=== PATIENT | male | born 1980 | race Caucasian/White ===

== ENCOUNTER 2016-11-14 08:32 | Emergency (ER) | payer MEDICAID ==
[~2016-11-14] VITALS: Ht 160 cm; Wt 80.0 kg
[~2016-11-14 08:32] MED LIST: FOLI-49 PO; PANT40TA3 PO
[2016-11-14 08:35] VITALS: Ht 160 cm; Wt 80.0 kg
[2016-11-14] MEDS ORDERED: morphine 2 MG INJ IV STA (09:32)
[2016-11-14] MEDS ORDERED: ONDANSETRON 4 MG INJ IV STA (09:32)
[2016-11-14] MEDS ORDERED: FAMOTIDINE 20 MG INJ IV STA (09:32)
[2016-11-14] MEDS ORDERED: SOD CHLORIDE 0.9% 1,000 ML IV STA (09:32)
[2016-11-14] MEDS ORDERED: ASPIRIN 81 MG TAB PO ONE (10:00)
[2016-11-14 10:19] LABS: ADD SCAN DIFF NO
[2016-11-14 10:26] LABS: BASOPHIL # 0.1 10^3/ul (0.0-0.1); BASOPHILS % 1.2 % (0.0-2.0); EOSINOPHILS % 0.2 % (0.0-7.0); HEMATOCRIT 29.5 % (42.0-52.0); HEMOGLOBIN 8.9 g/dl (14.0-18.0); LYMPHOCYTES # 1.6 10^3/ul (0.8-2.9); LYMPHOCYTES % 32.4 % (15.0-51.0); MEAN CORPUSCULAR HEMOGLOBIN 22.5 pg (29.0-33.0); MEAN CORPUSCULAR HGB CONC 30.2 g/dl (32.0-37.0); MEAN CORPUSCULAR VOLUME 74.7 fl (82.0-101.0); MEAN PLATELET VOLUME 10.5 fl (7.4-10.4); MONOCYTE # 0.5 10^3/ul (0.3-0.9); MONOCYTES % 10.2 % (0.0-11.0); NEUTROPHIL # 2.7 10^3/ul (1.6-7.5); NEUTROPHILS % 55.6 % (39.0-77.0); PLATELET COUNT 247 10^3/UL (140-415); RED BLOOD COUNT 3.95 10^6/ul (4.70-6.10); RED CELL DISTRIBUTION WIDTH 19.9 % (11.5-14.5); WHITE BLOOD COUNT 4.9 10^3/ul (4.8-10.8)
[2016-11-14 10:54] LABS: ALBUMIN 4.4 g/dl (3.3-4.9)
[2016-11-14 10:55] LABS: CHLORIDE 94 mmol/L (97-110); POTASSIUM 3.4 mmol/L (3.5-5.1); SODIUM 135 mmol/L (135-144)
[2016-11-14 10:57] LABS: ANION GAP 22 (8-16); ASPARTATE AMINO TRANSFERASE 104 IU/L (15-46); BILIRUBIN,INDIRECT 0.5 mg/dl (0-1.1); BILIRUBIN,TOTAL 0.5 mg/dl (0.2-1.3); CARBON DIOXIDE 22 mmol/L (21-31); CREATININE 0.54 mg/dl (0.61-1.24); TOTAL PROTEIN 8.8 g/dl (6.1-8.1)
[2016-11-14 10:58] LABS: ALANINE AMINOTRANSFERASE 58 IU/L (13-69); ALKALINE PHOSPHATASE 90 IU/L (42-121); BLOOD UREA NITROGEN 9 mg/dl (7-20); CALCIUM 8.5 mg/dl (8.4-10.2); GLUCOSE 100 mg/dl (70-220)
[2016-11-14 11:14] LABS: TROPONIN-I < 0.012 ng/ml (0.00-0.12)
--- NOTE | 2016-11-14 11:15 | RADRPT ---
PROCEDURE: XR Chest. CLINICAL INDICATION: Chest pain TECHNIQUE: Chest AP portable. COMPARISON: 09/22/2014 FINDINGS: The mediastinal structures are unremarkable. The heart is normal in size and configuration. The pu lmonary vascularity is normal. The lung cox are unremarkable. No consolidation is identified. The pleural spaces are unremarkable. The axial skeleton is unremarkable. IMPRESSION: No active intrathoracic disease. RPTAT: HGDB .John Zapata MD, MD Date Time Electronically viewed and signed by .John Zapata MD, MD on 11/14/2016 11:15 .B/
[2016-11-14] MEDS ORDERED: morphine 4 MG/ML VIAL IV STA (11:24)
--- NOTE | 2016-11-14 11:30 | RADRPT ---
PROCEDURE: XR abdomen supine and upright. CLINICAL INDICATION: Abdominal pain TECHNIQUE: AP supine and upright views of the abdomen performed COMPARISON: None. FINDINGS: No organomegaly is identified. There is a nonspecific bowel gas pattern. There is no evidence of b owel obstruction. No free air is identified. No calculi are identified. The axial skeleton is unre markable. IMPRESSION: Unremarkable examination. RPTAT: HGDB .John Zapata MD, MD Date Time Electronically viewed and signed by .John Zapata MD, on 11/14/2016 11:30 .B/
[2016-11-14 11:47] LABS: ADD UMIC YES; URINE BILIRUBIN (Dip) NEGATIVE (NEGATIVE); URINE BLOOD (Dip) TRACE (NEGATIVE); URINE COLOR LT. YELLOW (YELLOW); URINE GLUCOSE (Dip) NEGATIVE (NEGATIVE); URINE KETONES (Dip) NEGATIVE (NEGATIVE); URINE LEUKOCYTE ESTERASE (Dip) 1+ (NEGATIVE); URINE NITRITE (Dip) NEGATIVE (NEGATIVE); URINE TOTAL PROTEIN (Dip) NEGATIVE (NEGATIVE); URINE UROBILINOGEN (Dip) 0.2 E.U./dL (0.1-1.0)
[2016-11-14 12:04] LABS: BACTERIA,URINE FEW; URINE RBCS 0-2 /HPF (0)
[2016-11-14] MEDS ORDERED: UDLOM GTB (12:34)
[2016-11-14] MEDS ORDERED: ONDA4TAB11 PO (12:34)
[2016-11-14] MEDS ORDERED: RANI150T9 PO (12:42)
[2016-11-14] MEDS ORDERED: FER325 PO (12:43)
[2016-11-14] MEDS ORDERED: CEPH-443 PO (12:44)
[2016-11-14 13:10] VITALS: BP 130/78; PULSE 84; RESP 18; TEMP 97.6
[2016-11-15] MEDS ORDERED: FAMO-18 PO (07:56)
[2016-11-15] MEDS ORDERED: LOPE2CAP PO (07:56)
[2016-11-15] MEDS ORDERED: DICY10CA60 PO (07:56)
--- NOTE | 2016-11-27 14:56 | ERD ---
DATE OF SERVICE: 11/14/2016 HISTORY OF PRESENT ILLNESS: This 28-year-old male presented to the emergency room for 3 days of juventino sea, vomiting, diarrhea. He also stated that he has intermittent, crampy abdominal pain that does n ot radiate. He also states that since last night he has had intermittent burning chest pain that do es not radiate, is substernal. He denies fevers. Denies shortness of breath. States that he is ab le to hold some liquids as well as solids and believes that today he is feeling a little bit better. REVIEW OF SYSTEMS: A 10-point review of systems negative except as in the HPI. PAST MEDICAL HISTORY: Denies. PAST SURGICAL HISTORY: Denies. FAMILY HISTORY: Noncontributory. SOCIAL HISTORY: Does not smoke or use other drugs but admits to drinking almost every day, at least 3 beers. He states that he did not drink today or yesterday because he was feeling sick. PHYSICAL EXAMINATION VITAL SIGNS: Temperature 98.1, pulse 94, blood pressure 145/89, respirations 18, oxygen saturation 98% on room air. GENERAL: No acute distress. HEENT: Normocephalic, atraumatic. Mucous membranes slightly dry. NECK: Supple, no JVD or meningismus. CARDIAC: Regular rhythm. No murmurs. LUNGS: Clear to auscultation bilaterally. ABDOMEN: Soft, no specific tenderness, nondistended, bowel sounds present in all 4 quadrants. EXTREMITIES: No cyanosis, clubbing or edema. VASCULAR: Distal pulses intact all 4 extremities. NEUROLOGIC: Alert and oriented x3 with no focal deficits. SKIN: No rashes or other lesions. Dry, warm. PSYCHIATRIC: Normal mood and affect. EMERGENCY DEPARTMENT COURSE AND MEDICAL DECISION MAKING: Patient showing dehydration secondary to v omiting and diarrhea, likely secondary to viral gastroenteritis versus food poisoning versus alcohol -related irritation of intestines. For the chest pain, cardiac workup was performed which shows no ischemic changes on EKG and a negative troponin. His chest pain was a burning pain, is likely assoc iated with reflux of acid secondary to his vomiting. He was given IV Pepcid, Zofran, morphine and a liter of normal saline, after which he was feeling much better. Because of the chest pain, he was also given aspirin. He did have mild lactic acidosis likely secondary to his dehydration. No signs of renal dysfunction or other electrolyte abnormalities. Urinalysis was positive for 10 to 25 whit e cells as well as leukocyte esterase. We did treat him with 3 days of Keflex for possible UTI. Bryson kuhn also shows that he has chronic anemia. I am going to prescribe him iron tablets as well. To prevent further dehydration, I am also discharging him with Lomotil and Zofran to help with his symp toms. I am also giving him Zantac. ____with primary care followup and instructed to follow up in t he next 2 to 3 days, but return to the emergency room if he has having any acute symptoms and cannot hold down any food, or if he continues to have significant diarrhea. ABDOMINAL X-RAY INTERPRETATION, 2-VIEW: I see no acute process, I see no obstruction, no free air, no bony abnormalities. Normal abdominal x-ray. CHEST X-RAY INTERPRETATION: I see no acute process. I see no consolidation, no pulmonary edema, no pneumothorax, no bony abnormalities. EKG INTERPRETATION: Normal sinus rhythm, rate 69, normal axis, normal intervals, no ST or T-wave ch anges concerning for acute ischemia. Normal EKG. AUTOMATIC BUFFER INTERPRETATION: Normal sinus rhythm without arrhythmia. DISCHARGE DIAGNOSES: 1. Dehydration. 2. Nausea, vomiting, and diarrhea. 3. Microcytic anemia. 4. Chest pain. 5. Urinary tract infection. DISPOSITION: Home in stable condition. Dictated By: BECCA HUANG/PARAS Conf#: [id number] DID#: [id number]
== END 2016-11-14 13:14 | disposition home or self-care (01) ==
LOC: E/R 08:32
DX: E86.0 Dehydration (principal); D50.9 Iron deficiency anemia, unspecified; R07.9 Chest pain, unspecified; N39.0 Urinary tract infection, site not specified; R40.2252 Coma scale, best verbal response, oriented, at arrival to emergency department; R40.2142 Coma scale, eyes open, spontaneous, at arrival to emergency department; R40.2362 Coma scale, best motor response, obeys commands, at arrival to emergency department
CPT/HCPCS: 71010; 74010; 80053; 81001; 83605; 83690; 84484; 85025; 93005; J2270; J2405; J7030; Z7610; 36415; 81003; 96374; 96375

== ENCOUNTER 2016-11-15 05:45 | Emergency (ER) | payer MEDICAID ==
[~2016-11-15] VITALS: Ht 175.3 cm; Wt 106.8 kg
[~2016-11-15 05:45] MED LIST changes: +CEPH-443 PO; +FER325 PO; -FOLI-49 PO; +ONDA4TAB11 PO; +RANI150T9 PO; +UDLOM GTB
[2016-11-15 05:46] VITALS: Ht 175.3 cm; Wt 106.8 kg
[2016-11-15] MEDS ORDERED: BELLADONNA/PHENOBARBITAL TAB PO STA (06:12)
[2016-11-15] MEDS ORDERED: FAMOTIDINE 20 MG TAB PO STA (06:12)
[2016-11-15] MEDS ORDERED: LIDOCAINE/MYLANTA 40 ML BTL PO STA (06:12)
[2016-11-15] MEDS ORDERED: ONDANSETRON (ODT) 4 MG TAB ODT STA (06:12)
[2016-11-15] MEDS ORDERED: DICYCLOMINE 10 MG CAP PO ONE (06:30)
--- NOTE | 2016-11-15 06:34 | ERD ---
ER Documentation Chief Complaint Date/Time DATE: 11/15/16 TIME: 06:31 Chief Complaint PERSISTENT ABD PAIN, N/V/D X 2 DAYS, RECENTLY D/C'D HERE FOR SAME HPI This is a 36-year-old male to the ER with persistent epigastric pain that started yesterday. Patient states that epigastric pain radiates up into his right upper quadrant, it is intermittent and burning in quality. Patient states he has had nausea vomiting and diarrhea. Vomiting is not bilious nonbloody. Diarrhea is watery with no blood in it. Patient was seen here yesterday, however he did not fill his medication. patient has a past medical history of previous GI bleeds. Patient denies any fevers or chills. Patient has not traveled anywhere. Patient denies any chest pain or shortness of breath. ROS 12 point review of systems was done, all negative except per HPI. Medications Home Meds Active Scripts Loperamide Hcl* (Imodium*) 2 Mg Capsule, 2 MG PO .WITH EACH DIARRHEA Y for DIARRHEA for 3 Days, CAP MAX 16 mg/day Prov:STEVE MONSALVE 11/15/16 Dicyclomine Hcl* (Bentyl*) 10 Mg Capsule, 10 MG PO QID for 3 Days, CAP Prov:STEVE MONSALVE C 11/15/16 Famotidine* (Pepcid*) 20 Mg Tablet, 20 MG PO BID for 7 Days, TAB Prov:BELLO,STEVE C 11/15/16 Cephalexin* (Keflex*) 500 Mg Capsule, 500 MG PO TID for 5 Days, CAP Prov:BECCA MUELLER DO 11/14/16 Ferrous Sulfate* (Ferrous Sulfate*) 325 Mg Tabec, 325 MG PO BID, #30 TAB Prov:BECCA MUELLER DO 11/14/16 Ranitidine Hcl* (Zantac*) 150 Mg Tablet, 150 MG PO BID Y for EPIGASTRIC PAIN, # 30 TAB Prov:BECCA MUELLER DO 11/14/16 Diphenoxylate Hcl-Atropine* (Lomotil*) 5 Ml Soln, 5 ML GTB Q6H Y for DIARRHEA, # 14 ML Prov:BECCA MUELLER DO 11/14/16 Ondansetron (Zofran Odt) 4 Mg Tab.rapdis, 4 MG PO Q6, #10 Prov:BECCA MUELLER DO 11/14/16 Pantoprazole* (Protonix*) 40 Mg Tablet.dr, 40 MG PO DAILY for 30 Days, TAB Prov:JOHNATHAN EDGAR 06/13/16 Discontinued Scripts Folic Acid* (Folic Acid*) 1 Mg Tablet, 1 MG PO DAILY for 30 Days, TAB Prov:JOHNATHAN EDGAR 06/13/16 Allergies Allergies: Coded Allergies: No Known Allergy (Unverified , 11/14/16) PMhx/Soc History of Surgery: No (DENIES SURGICAL HX.) Anesthesia Reaction: No Hx Neurological Disorder: No Hx Respiratory Disorders: No Hx Cardiac Disorders: No Hx Psychiatric Problems: No Hx Miscellaneous Medical Probl: Yes (ALCOHOL ABUSE.) Hx Alcohol Use: Yes (8 cans of beers/day for last 3 months) Hx Substance Use: No Hx Tobacco Use: No Smoking Status: Never smoker Physical Exam Vitals Vital Signs Date Time Temp Pulse Resp B/P Pulse Ox O2 Delivery O2 Flow Rate FiO2 11/15/16 05:46 96.5 110 18 132/84 97 Physical Exam GENERAL: The patient is well developed and appropriate for usual state of health , in no apparent distress. HEENT: Atraumatic. CHEST: Clear to auscultation bilaterally. There are no rales, wheezes or rhonchi. HEART: Regular rate and rhythm. No murmurs, clicks, rubs or gallops. ABDOMEN: Soft and nondistended. Patient is tender to palpation over the epigastric area and in the right upper quadrant. Good bowel sounds. No rebound or guarding. No gross peritonitis. No gross organomegaly or masses. No Tuttle sign or McBurney point tenderness. No pulsatile masses BACK: No midline or flank tenderness. NEURO: Alert and oriented. SKIN: There is no apparent rash or petechia. The skin is warm and dry. Result Diagram: 11/15/16 0650 11/15/16 0658 Results 24 hrs Laboratory Tests Test 11/15/16 06:50 11/15/16 06:58 White Blood Count 7.010^3/ul Red Blood Count 4.1610^6/ul Hemoglobin 9.2g/dl Hematocrit 31.4% Mean Corpuscular Volume 75.5fl Mean Corpuscular Hemoglobin 22.1pg Mean Corpuscular Hemoglobin Concent 29.3g/dl Red Cell Distribution Width 20.3% Platelet Count 37490^3/UL Mean Platelet Volume 10.6fl Neutrophils % 74.5% Lymphocytes % 15.0% Monocytes % 9.4% Eosinophils % 0.3% Basophils % 0.7% Nucleated Red Blood Cells % 0.0/100WBC Neutrophils # 5.210^3/ul Lymphocytes # 1.110^3/ul Monocytes # 0.710^3/ul Eosinophils # 0.010^3/ul Basophils # 0.110^3/ul Nucleated Red Blood Cells # 0.010^3/ul Sodium Level 136mmol/L Potassium Level 4.0mmol/L Chloride Level 99mmol/L Carbon Dioxide Level 25mmol/L Anion Gap 16 Blood Urea Nitrogen 7mg/dl Creatinine 0.68mg/dl Glucose Level 114mg/dl Calcium Level 9.1mg/dl Total Bilirubin 0.7mg/dl Direct Bilirubin 0.00mg/dl Indirect Bilirubin 0.7mg/dl Aspartate Amino Transf (AST/SGOT) 144IU/L Alanine Aminotransferase (ALT/SGPT) 68IU/L Alkaline Phosphatase 108IU/L Total Protein 9.1g/dl Albumin 4.6g/dl Globulin 4.50g/dl Albumin/Globulin Ratio 1.02 Lipase 192U/L Current Medications Medications (Trade) Dose Ordered Sig/Mirlande Route PRN Reason Start Time Stop Time Status Last Admin Dose Admin Famotidine (Pepcid) 20 mg ONCE STAT PO 11/15/16 06:12 11/15/16 06:14 DC 11/15/16 06:41 Miscellaneous Medication (Gi Cocktail (2)) 40 ml ONCE STAT PO 11/15/16 06:12 11/15/16 06:14 DC 11/15/16 06:42 Belladonna/ Phenobarbital () 2 tab ONCE STAT PO 11/15/16 06:12 11/15/16 06:14 DC 11/15/16 06:42 Ondansetron HCl (Zofran Odt) 4 mg ONCE STAT ODT 11/15/16 06:12 11/15/16 06:14 DC 11/15/16 06:41 Dicyclomine HCl (Bentyl) 10 mg ONCE ONCE PO 11/15/16 06:30 11/15/16 06:31 DC 11/15/16 06:41 Procedures/MDM Differential Diagnosis: GERD, gastritis, peptic ulcer disease, pancreatitis, cholecystitis, choledocholithiasis, biliary colic, cholangitis, Djsj-Yret-Woigel , ACS/DC, Pnuemonia. This is a 36 y.o male that presents with n/v/d since yesterday. Patient was here yesterday and extensively worked up. Patient did have a little bit of RUQ pain, therefore ultz was done. There is no evidence of gallbladder disease. Patient's bloodwork is normal, with no evidence of increased liver enzymes or pancreatitis. Patient's hemoglobin is increasing, suspicion for GI bleed is low. Patient does not have any hx of melana or cofffe ground vomiting. Patient was told to fill his medications from yesterday and from today. He needs to f/u with PCP within 1-2 days or return to ER sooner if symptoms worsen. Plan was discussed with the patient, he understands and agrees with plan. Departure Diagnosis: Primary Impression: Nausea vomiting and diarrhea Condition: Stable STEVE MONSALVE November 15, 2016 06:34
--- NOTE | 2016-11-15 06:54 | RADRPT ---
PROCEDURE: US Abdomen. CLINICAL INDICATION: abdominal pain TECHNIQUE: Multiple real-time images were acquired of the patient's right upper quadrant abdomen a nd retroperitoneum utilizing a high resolution transducer. COMPARISON: 05/13/2012 FINDINGS: The liver demonstrates increased echogenicity. The liver is slightly enlarged in size and no focal solid lesions are seen. The liver measures 19.5 cm in length. The portal vein is patent with normal direction of flow. No intrahepatic biliary dilatation is seen. No gallstones are identified within the gallbladder. There is no pericholecystic fluid or gallbladd er wall thickening. The common bile duct measures 5 mm in maximal dimension. The visualized portions of the pancreas are unremarkable. The tail of the pancreas is not seen. No free fluid is identified. The right kidney is normal in size, and demonstrate normal echogenicity and cortical thickness. The right kidney measures 12.4 cm in long dimension. There is no evidence of hydronephrosis. There are no kidney stones. RPTAT: AA IMPRESSION: Mild hepatomegaly with diffuse fatty infiltration of the liver. No evidence of gallstones. .Marek Sommers MD MD Date Time Electronically viewed and signed by .Marek Sommers MD, MD on 11/15/2016 06:54 .S/
[2016-11-15 07:18] LABS: ADD SCAN DIFF NO
[2016-11-15 07:30] LABS: BASOPHIL # 0.1 10^3/ul (0.0-0.1); BASOPHILS % 0.7 % (0.0-2.0); EOSINOPHILS % 0.3 % (0.0-7.0); HEMATOCRIT 31.4 % (42.0-52.0); HEMOGLOBIN 9.2 g/dl (14.0-18.0); LYMPHOCYTES # 1.1 10^3/ul (0.8-2.9); MEAN CORPUSCULAR HEMOGLOBIN 22.1 pg (29.0-33.0); MEAN CORPUSCULAR HGB CONC 29.3 g/dl (32.0-37.0); MEAN CORPUSCULAR VOLUME 75.5 fl (82.0-101.0); MEAN PLATELET VOLUME 10.6 fl (7.4-10.4); MONOCYTE # 0.7 10^3/ul (0.3-0.9); MONOCYTES % 9.4 % (0.0-11.0); NEUTROPHIL # 5.2 10^3/ul (1.6-7.5); NEUTROPHILS % 74.5 % (39.0-77.0); PLATELET COUNT 226 10^3/UL (140-415); RED BLOOD COUNT 4.16 10^6/ul (4.70-6.10); RED CELL DISTRIBUTION WIDTH 20.3 % (11.5-14.5)
[2016-11-15 07:49] LABS: ALBUMIN 4.6 g/dl (3.3-4.9); ALBUMIN/GLOBULIN RATIO 1.02; BILIRUBIN,INDIRECT 0.7 mg/dl (0-1.1); BILIRUBIN,TOTAL 0.7 mg/dl (0.2-1.3); CALCIUM 9.1 mg/dl (8.4-10.2); CREATININE 0.68 mg/dl (0.61-1.24); TOTAL PROTEIN 9.1 g/dl (6.1-8.1)
[2016-11-15] MEDS ORDERED: DICY10CA60 PO (07:56)
[2016-11-15] MEDS ORDERED: LOPE2CAP PO (07:56)
[2016-11-15] MEDS ORDERED: FAMO-18 PO (07:56)
== END 2016-11-15 08:05 | disposition home or self-care (01) ==
LOC: FTE 05:45
DX: R11.2 Nausea with vomiting, unspecified (principal); R19.7 Diarrhea, unspecified
CPT/HCPCS: 76705; 80053; 83690; 85025; Z7502; Z7610

== ENCOUNTER 2016-11-20 05:17 | Emergency (ER) | payer MEDICAID ==
[~2016-11-20] VITALS: Ht 177.8 cm; Wt 102.0 kg
[~2016-11-20 05:17] MED LIST changes: +DICY10CA60 PO; +FAMO-18 PO; +LOPE2CAP PO
[2016-11-20 05:19] VITALS: Ht 177.8 cm; Wt 102.0 kg
[2016-11-20] MEDS ORDERED: SOD CHLORIDE 0.9% 1,000 ML IV STA (05:28)
[2016-11-20] MEDS ORDERED: LORAZEPAM 2 MG INJ IV ONE (05:30)
--- NOTE | 2016-11-20 05:31 | ERD ---
ER Documentation Chief Complaint Date/Time DATE: 11/20/16 TIME: 05:29 Chief Complaint etoh wldrawal- shaking, drinking tequila staight 15 days HPI This is a 36-year-old male with complaint of EtOH withdrawal. Says he drinks 15 days in a row and starting today. She feels shaky. Denies any hallucinations. Denies any other current complaints. ROS All systems reviewed and are negative except as per history of present illness. Medications Home Meds Active Scripts Loperamide Hcl* (Imodium*) 2 Mg Capsule, 2 MG PO .WITH EACH DIARRHEA Y for DIARRHEA for 3 Days, CAP MAX 16 mg/day Prov:STEVE MONSALVE C 11/15/16 Dicyclomine Hcl* (Bentyl*) 10 Mg Capsule, 10 MG PO QID for 3 Days, CAP Prov:STEVE MONSALVE 11/15/16 Famotidine* (Pepcid*) 20 Mg Tablet, 20 MG PO BID for 7 Days, TAB Prov:STEVE MONSALVE 11/15/16 Cephalexin* (Keflex*) 500 Mg Capsule, 500 MG PO TID for 5 Days, CAP Prov:BECCA MUELLER DO 11/14/16 Ferrous Sulfate* (Ferrous Sulfate*) 325 Mg Tabec, 325 MG PO BID, #30 TAB Prov:BECCA MUELLER DO 11/14/16 Ranitidine Hcl* (Zantac*) 150 Mg Tablet, 150 MG PO BID Y for EPIGASTRIC PAIN, # 30 TAB Prov:BECCA MUELLER DO 11/14/16 Diphenoxylate Hcl-Atropine* (Lomotil*) 5 Ml Soln, 5 ML GTB Q6H Y for DIARRHEA, # 14 ML Prov:BECCA MUELLER DO 11/14/16 Ondansetron (Zofran Odt) 4 Mg Tab.rapdis, 4 MG PO Q6, #10 Prov:BECCA MUELLER DO 11/14/16 Pantoprazole* (Protonix*) 40 Mg Tablet.dr, 40 MG PO DAILY for 30 Days, TAB Prov:JOHNATHAN EDGAR 06/13/16 Discontinued Scripts Folic Acid* (Folic Acid*) 1 Mg Tablet, 1 MG PO DAILY for 30 Days, TAB Prov:JOHNATHAN EDGAR 06/13/16 Allergies Allergies: Coded Allergies: No Known Allergy (Unverified , 11/14/16) PMhx/Soc History of Surgery: No (DENIES SURGICAL HX.) Anesthesia Reaction: No Hx Neurological Disorder: No Hx Respiratory Disorders: No Hx Cardiac Disorders: No Hx Psychiatric Problems: No Hx Miscellaneous Medical Probl: Yes (ALCOHOL ABUSE.) Hx Alcohol Use: Yes (8 cans of beers/day for last 3 months) Hx Substance Use: No Hx Tobacco Use: No Physical Exam Vitals Vital Signs Date Time Temp Pulse Resp B/P Pulse Ox O2 Delivery O2 Flow Rate FiO2 11/20/16 05:19 97.8 114 20 158/85 98 Physical Exam Const: [] Head: Atraumatic Eyes: Normal Conjunctiva ENT: Normal External Ears, Nose and Mouth. Neck: Full range of motion..~ No meningismus. Resp: Clear to auscultation bilaterally Cardio: Regular rate and rhythm, no murmurs Abd: Soft, non tender, non distended. Normal bowel sounds Skin: No petechiae or rashes Back: No midline or flank tenderness Ext: No cyanosis, or edema Neur: Awake and alert Psych: Normal Mood and Affect Procedures/MDM This is a 36-year-old alcoholic who decided to stop drinking today. He has been treated for his withdrawal symptoms with fluid hydration and Ativan administration intravenously. He will be discharged home with [facility] [place]. Patient has been advised to stop drinking. He has also been advised to seek outpatient treatment. Resources were offered, however the patient declined Departure Diagnosis: Primary Impression: Alcohol withdrawal syndrome Complication of substance-induced condition: uncomplicated Qualified Code: F10.230 - Alcohol withdrawal syndrome, uncomplicated Condition: Stable PAUL COLLINS November 20, 2016 05:31
[2016-11-20] MEDS ORDERED: CHLO25CA9 PO (05:34)
[2016-11-20 08:20] VITALS: BP 125/69; PULSE 79; RESP 19; TEMP 98
== END 2016-11-20 08:20 | disposition home or self-care (01) ==
LOC: E/R 05:17
DX: F10.230 Alcohol dependence with withdrawal, uncomplicated (principal)
CPT/HCPCS: 96361; 96374; J2060; J7030; Z7502

== ENCOUNTER 2016-12-14 07:19 | Emergency (ER) | payer MEDICAID ==
[~2016-12-14] VITALS: Ht 177.8 cm; Wt 98.0 kg
[~2016-12-14 07:19] MED LIST changes: +CHLO25CA9 PO
[2016-12-14 07:21] VITALS: Ht 177.8 cm; Wt 98.0 kg
[2016-12-14] MEDS ORDERED: SOD CHLORIDE 0.9% 1,000 ML IV STA (07:29)
[2016-12-14] MEDS ORDERED: LORAZEPAM 2 MG INJ IV ONE (07:30)
[2016-12-14 08:04] LABS: ADD SCAN DIFF NO
[2016-12-14 08:09] LABS: BASOPHIL # 0.1 10^3/ul (0.0-0.1); EOSINOPHILS % 0.2 % (0.0-7.0); HEMATOCRIT 30.9 % (42.0-52.0); HEMOGLOBIN 9.8 g/dl (14.0-18.0); LYMPHOCYTES # 2.4 10^3/ul (0.8-2.9); LYMPHOCYTES % 46.3 % (15.0-51.0); MEAN CORPUSCULAR HEMOGLOBIN 22.3 pg (29.0-33.0); MEAN CORPUSCULAR HGB CONC 31.7 g/dl (32.0-37.0); MEAN CORPUSCULAR VOLUME 70.4 fl (82.0-101.0); MONOCYTE # 0.4 10^3/ul (0.3-0.9); NEUTROPHIL # 2.3 10^3/ul (1.6-7.5); NEUTROPHILS % 44.1 % (39.0-77.0); RED BLOOD COUNT 4.39 10^6/ul (4.70-6.10); RED CELL DISTRIBUTION WIDTH 20.5 % (11.5-14.5); WHITE BLOOD COUNT 5.1 10^3/ul (4.8-10.8)
[2016-12-14 08:25] LABS: ALANINE AMINOTRANSFERASE 89 IU/L (13-69); ALBUMIN 4.6 g/dl (3.3-4.9); ALKALINE PHOSPHATASE 134 IU/L (42-121); ANION GAP 18 (8-16); ASPARTATE AMINO TRANSFERASE 223 IU/L (15-46); BILIRUBIN,INDIRECT 0.2 mg/dl (0-1.1); BILIRUBIN,TOTAL 0.2 mg/dl (0.2-1.3); BLOOD UREA NITROGEN 7 mg/dl (7-20); CALCIUM 8.5 mg/dl (8.4-10.2); CARBON DIOXIDE 22 mmol/L (21-31); CHLORIDE 99 mmol/L (97-110); CREATININE 0.52 mg/dl (0.61-1.24); GLUCOSE 141 mg/dl (70-220); POTASSIUM 3.4 mmol/L (3.5-5.1); SODIUM 136 mmol/L (135-144); TOTAL PROTEIN 9.2 g/dl (6.1-8.1)
[2016-12-14 08:46] LABS: TROPONIN-I < 0.012 ng/ml (0.00-0.12)
--- NOTE | 2016-12-14 08:47 | ERD ---
ER Documentation Chief Complaint Date/Time DATE: 12/14/16 TIME: 08:46 Chief Complaint shaking and palpitations had been drinking alcohol x 1 week, used drugs HPI 36-year-old man here for palpitations and complaints of anxiety. Symptoms present this morning and intermittently throughout the week secondary to methamphetamine abuse and alcohol ingestion, patient has a history of alcohol abuse. He denies suicidal homicidal ideation, no fevers or chills, no blood per rectum or melena, no vomiting or diarrhea. ROS All systems reviewed and are negative except as per history of present illness. Medications Home Meds Active Scripts Chlordiazepoxide* (Chlordiazepoxide*) 10 Mg Capsule, 10 MG PO BID for CONTROL WITHDRAWAL SYMPTOMS, #15 CAP Prov:DULCE CISSE MD 12/14/16 Mag Hydrox/Al Hydrox/Simeth (Maalox Plus X-Strength Susp) 355 Ml Oral.susp, 2 TSP PO TID for PAIN, #24 Prov:DULCE CISSE MD 12/14/16 Ondansetron Hcl* (Zofran*) 4 Mg Tablet, 4 MG PO Q8H Y for NAUSEA AND/OR VOMITING , #15 TAB Prov:DULCE CISSE MD 12/14/16 Chlordiazepoxide* (Chlordiazepoxide*) 25 Mg Capsule, 25 MG PO Q8 Y for CONTROL WITHDRAWAL SYMPTOMS, #30 CAP Prov:PAUL COLLINS 11/20/16 Loperamide Hcl* (Imodium*) 2 Mg Capsule, 2 MG PO .WITH EACH DIARRHEA Y for DIARRHEA for 3 Days, CAP MAX 16 mg/day Prov:STEVE MONSALVE 11/15/16 Dicyclomine Hcl* (Bentyl*) 10 Mg Capsule, 10 MG PO QID for 3 Days, CAP Prov:STEVE MONSALVE 11/15/16 Famotidine* (Pepcid*) 20 Mg Tablet, 20 MG PO BID for 7 Days, TAB Prov:STEVE MONSALVE 11/15/16 Cephalexin* (Keflex*) 500 Mg Capsule, 500 MG PO TID for 5 Days, CAP Prov:BECCA MUELLER DO 11/14/16 Ferrous Sulfate* (Ferrous Sulfate*) 325 Mg Tabec, 325 MG PO BID, #30 TAB Prov:BECCA MUELLER DO 11/14/16 Ranitidine Hcl* (Zantac*) 150 Mg Tablet, 150 MG PO BID Y for EPIGASTRIC PAIN, # 30 TAB Prov:BECCA MUELLER DO 11/14/16 Diphenoxylate Hcl-Atropine* (Lomotil*) 5 Ml Soln, 5 ML GTB Q6H Y for DIARRHEA, # 14 ML Prov:BECCA MUELLER DO 11/14/16 Ondansetron (Zofran Odt) 4 Mg Tab.rapdis, 4 MG PO Q6, #10 Prov:BECCA MUELLER DO 11/14/16 Pantoprazole* (Protonix*) 40 Mg Tablet.dr, 40 MG PO DAILY for 30 Days, TAB Prov:JOHNATHAN EDGAR 06/13/16 Allergies Allergies: Coded Allergies: No Known Allergy (Unverified , 11/14/16) PMhx/Soc Drug and alcohol abuse History of Surgery: No (DENIES SURGICAL HX.) Anesthesia Reaction: No Hx Neurological Disorder: No Hx Respiratory Disorders: No Hx Cardiac Disorders: No Hx Psychiatric Problems: No Hx Miscellaneous Medical Probl: Yes (ALCOHOL ABUSE.) Hx Alcohol Use: Yes (heavy drinker) Hx Substance Use: Yes (meth 12/13/16) Hx Tobacco Use: Yes Smoking Status: Current some day smoker Physical Exam Vitals Vital Signs Date Time Temp Pulse Resp B/P Pulse Ox O2 Delivery O2 Flow Rate FiO2 12/14/16 10:17 95 20 122/79 96 Room Air 12/14/16 07:21 98.3 113 18 153/103 99 Physical Exam GENERAL: Well-developed, well-nourished, appears dehydrated, afebrile HEENT: Dry mucous membranes, pink conjunctiva, no cervical spine tenderness or step-off deformities, no goiter, no jaundice or icterus, extraocular movements intact without pain. No submandibular induration, and no pharyngeal erythema NEURO: Alert and oriented 3, cranial nerves II through XII intact bilaterally, pupils equal round reactive to light, no focal deficits or facial asymmetry, sensation intact distally Strength 5/5 in upper and lower extremities bilaterally CARDIAC: Tachycardic and regular, no murmurs rubs or gallops LUNGS: Clear bilaterally no wheezing crackles or stridor ABDOMEN: Soft nontender, no guarding, no rigidity, no rebound, no psoas sign no obturator sign. Normoactive bowel sounds SKIN: Warm and dry to touch, no abrasions, contusions, or hematomas, no lacerations, no ecchymosis, no target lesions, and without ulcers EXTREMITIES: No clubbing cyanosis or edema, calves are bilaterally symmetrical, no Homans sign, no popliteal cord sign. Distal pulses equal and bilateral PSYCH: Anxious, agitated Result Diagram: 12/14/16 0740 12/14/16 0740 Results 24 hrs Laboratory Tests Test 12/14/16 07:40 White Blood Count 5.110^3/ul Red Blood Count 4.3910^6/ul Hemoglobin 9.8g/dl Hematocrit 30.9% Mean Corpuscular Volume 70.4fl Mean Corpuscular Hemoglobin 22.3pg Mean Corpuscular Hemoglobin Concent 31.7g/dl Red Cell Distribution Width 20.5% Platelet Count 19832^3/UL Mean Platelet Volume fl Neutrophils % 44.1% Lymphocytes % 46.3% Monocytes % 8.0% Eosinophils % 0.2% Basophils % 1.0% Nucleated Red Blood Cells % 0.0/100WBC Neutrophils # 2.310^3/ul Lymphocytes # 2.410^3/ul Monocytes # 0.410^3/ul Eosinophils # 0.010^3/ul Basophils # 0.110^3/ul Nucleated Red Blood Cells # 0.010^3/ul Platelet Estimate PLT APPEAR DECREASED Sodium Level 136mmol/L Potassium Level 3.4mmol/L Chloride Level 99mmol/L Carbon Dioxide Level 22mmol/L Anion Gap 18 Blood Urea Nitrogen 7mg/dl Creatinine 0.52mg/dl Glucose Level 141mg/dl Calcium Level 8.5mg/dl Total Bilirubin 0.2mg/dl Direct Bilirubin 0.00mg/dl Indirect Bilirubin 0.2mg/dl Aspartate Amino Transf (AST/SGOT) 223IU/L Alanine Aminotransferase (ALT/SGPT) 89IU/L Alkaline Phosphatase 134IU/L Troponin I < 0.012ng/ml Total Protein 9.2g/dl Albumin 4.6g/dl Globulin 4.60g/dl Albumin/Globulin Ratio 1.00 Lipase 482U/L Current Medications Medications (Trade) Dose Ordered Sig/Mirlande Route PRN Reason Start Time Stop Time Status Last Admin Dose Admin Sodium Chloride (NS) 1,000 ml @ 1,000 mls/hr Q1H STAT IV 12/14/16 07:29 12/14/16 08:28 DC 12/14/16 08:05 Lorazepam (Ativan) 1 mg ONCE ONCE IV 12/14/16 07:30 12/14/16 07:31 DC 12/14/16 08:06 Clonidine (Catapres) 0.1 mg ONCE ONCE PO 12/14/16 07:30 12/14/16 07:31 DC 12/14/16 08:06 Procedures/[facility] IV line was established patient was placed on green house manager rhythm strip revealed a sinus tachycardia at 110 bpm with upright P and T waves. Patient was afebrile. EKG performed, read by me revealed a sinus tachycardia at 109 bpm, normal axis, right ventricular conduction delay with a QRS duration of 102 ms, no concerning ST elevations or depressions noted. I administered about 2 L normal saline intravenously for dehydration, lorazepam 1 mg IV for anxiety and palpitations, and clonidine 0.1 mg for hypertension. Patient's vital signs improved. CBC revealed mild anemia with a hemoglobin of 9.8, electrolytes revealed hypokalemia 3.4, liver function tests revealed transaminitis otherwise unremarkable, troponin was negative. Differential diagnoses considered, included but not limited to acute coronary syndrome, pulmonary embolism, aortic dissection, abdominal aortic aneurysm, sepsis, stroke, meningitis, encephalitis, pneumonia, appendicitis, cholecystitis , bowel obstruction, pyelonephritis, nephrolithiasis, cystitis, as well as metabolic, hematologic, and electrolyte abnormalities. As well as abscess, cellulitis, fractures, and dislocations. Patient feels much better at this time, and vital signs are normal, symptoms have improved. I did give strict instructions to return to the ED if symptoms continue or worsen, patient will otherwise follow-up with primary care physician. Patient understood instructions and agreed to plan. Disclaimer: Inadvertent spelling or grammatical errors are likely due to EHR/ dictation software use and do not reflect on the overall quality of patient care. Departure Diagnosis: Primary Impression: Alcohol withdrawal syndrome Complication of substance-induced condition: uncomplicated Qualified Code: F10.230 - Alcohol withdrawal syndrome, uncomplicated Additional Impressions: Anxiety Methamphetamine abuse Dehydration Condition: Good DULCE CISSE MD Dec 14, 2016 08:47
[2016-12-14 09:34] LABS: PLATELET COUNT 137 10^3/UL (140-415)
[2016-12-14 09:35] LABS: PLATELET ESTIMATE PLT APPEAR DECREASED
[2016-12-14] MEDS ORDERED: ONDA4TAB8 PO (10:03)
[2016-12-14] MEDS ORDERED: CHLO10CA6 PO (10:03)
[2016-12-14] MEDS ORDERED: MAG355OR15 PO (10:03)
[2016-12-14 10:17] VITALS: BP 122/79; PULSE 95; RESP 20
== END 2016-12-14 10:25 | disposition home or self-care (01) ==
LOC: E/R 07:19
DX: F10.230 Alcohol dependence with withdrawal, uncomplicated (principal); R40.2252 Coma scale, best verbal response, oriented, at arrival to emergency department; F41.9 Anxiety disorder, unspecified; F15.10 Other stimulant abuse, uncomplicated; E86.0 Dehydration; F17.210 Nicotine dependence, cigarettes, uncomplicated; R40.2142 Coma scale, eyes open, spontaneous, at arrival to emergency department; R40.2362 Coma scale, best motor response, obeys commands, at arrival to emergency department
CPT/HCPCS: 36415; 80053; 83690; 84484; 85025; 93005; 96361; 96374; J2060; J7030; Z7502; Z7610

== ENCOUNTER 2016-12-18 10:34 | Emergency (ER) | payer MEDICAID ==
[~2016-12-18] VITALS: Ht 160 cm; Wt 89.0 kg
[~2016-12-18 10:34] MED LIST changes: +CHLO10CA6 PO; +MAG355OR15 PO; +ONDA4TAB8 PO
[2016-12-18 10:39] VITALS: Ht 160 cm; Wt 89.0 kg
[2016-12-18] MEDS ORDERED: FAMOTIDINE 20 MG INJ IV STA (11:38)
[2016-12-18] MEDS ORDERED: ONDANSETRON 4 MG INJ IV STA (11:38)
[2016-12-18 12:00] LABS: ADD SCAN DIFF NO
[2016-12-18] MEDS ORDERED: LORAZEPAM 2 MG INJ IV ONE (12:00)
[2016-12-18 12:03] LABS: ADD UMIC YES; URINE BILIRUBIN (Dip) NEGATIVE (NEGATIVE); URINE BLOOD (Dip) TRACE (NEGATIVE); URINE COLOR LT. YELLOW (YELLOW); URINE GLUCOSE (Dip) NEGATIVE (NEGATIVE); URINE KETONES (Dip) NEGATIVE (NEGATIVE); URINE LEUKOCYTE ESTERASE (Dip) 1+ (NEGATIVE); URINE NITRITE (Dip) NEGATIVE (NEGATIVE); URINE TOTAL PROTEIN (Dip) NEGATIVE (NEGATIVE); URINE UROBILINOGEN (Dip) 0.2 E.U./dL (0.1-1.0)
[2016-12-18 12:07] LABS: ABNORMAL IP MESSAGE 1; BASOPHIL # 0.1 10^3/ul (0.0-0.1); BASOPHILS % 1.2 % (0.0-2.0); EOSINOPHILS % 0.3 % (0.0-7.0); HEMATOCRIT 33.2 % (42.0-52.0); HEMOGLOBIN 9.9 g/dl (14.0-18.0); LYMPHOCYTES # 2.5 10^3/ul (0.8-2.9); LYMPHOCYTES % 38.9 % (15.0-51.0); MEAN CORPUSCULAR HEMOGLOBIN 21.4 pg (29.0-33.0); MEAN CORPUSCULAR HGB CONC 29.8 g/dl (32.0-37.0); MEAN CORPUSCULAR VOLUME 71.7 fl (82.0-101.0); MEAN PLATELET VOLUME 10.3 fl (7.4-10.4); MONOCYTE # 0.5 10^3/ul (0.3-0.9); NEUTROPHIL # 3.4 10^3/ul (1.6-7.5); PLATELET COUNT 173 10^3/UL (140-415); RED BLOOD COUNT 4.63 10^6/ul (4.70-6.10); RED CELL DISTRIBUTION WIDTH 21.9 % (11.5-14.5); WHITE BLOOD COUNT 6.5 10^3/ul (4.8-10.8)
[2016-12-18 12:20] LABS: URINE RBCS 0-2 /HPF (0)
[2016-12-18 12:23] LABS: ALBUMIN 4.5 g/dl (3.3-4.9); ALBUMIN/GLOBULIN RATIO 0.93; BILIRUBIN,INDIRECT 0.3 mg/dl (0-1.1); BILIRUBIN,TOTAL 0.3 mg/dl (0.2-1.3); CALCIUM 8.9 mg/dl (8.4-10.2); CREATININE 0.58 mg/dl (0.61-1.24); POTASSIUM 4.1 mmol/L (3.5-5.1); TOTAL PROTEIN 9.3 g/dl (6.1-8.1)
[2016-12-18] MEDS ORDERED: ONDA8TAB14 PO (12:34)
[2016-12-18] MEDS ORDERED: FAMO-18 PO (12:34)
--- NOTE | 2016-12-18 12:37 | ERD ---
ER Documentation Chief Complaint Date/Time DATE: 12/18/16 TIME: 12:35 Chief Complaint ap with diarrhea, daily drinker, has 3 24 oz of beer today HPI This 28-year-old male presents with some epigastric discomfort, diarrhea and sensation of shakiness. History is significant for frequent visits for alcohol withdrawal and drug abuse. He admits to drinking 3 24 ounce beers today. Denies any history of seizures, fevers, vomiting, chest pain or shortness of breath. Denies any hallucinations, suicidal or homicidal ideation ROS All systems reviewed and are negative except as per history of present illness. Medications Home Meds Active Scripts Famotidine* (Pepcid*) 20 Mg Tablet, 20 MG PO BID for 10 Days, TAB Prov:KARLA GARCIA MD 12/18/16 Ondansetron (Ondansetron Odt) 8 Mg Tab.rapdis, 8 MG PO Q6H Y for NAUSEA AND/OR VOMITING, #10 TAB Prov:KARLA GARCIA MD 12/18/16 Chlordiazepoxide* (Chlordiazepoxide*) 10 Mg Capsule, 10 MG PO BID for CONTROL WITHDRAWAL SYMPTOMS, #15 CAP Prov:DULCE CISSE MD 12/14/16 Mag Hydrox/Al Hydrox/Simeth (Maalox Plus X-Strength Susp) 355 Ml Oral.susp, 2 TSP PO TID for PAIN, #24 Prov:DULCE CISSE MD 12/14/16 Ondansetron Hcl* (Zofran*) 4 Mg Tablet, 4 MG PO Q8H Y for NAUSEA AND/OR VOMITING , #15 TAB Prov:DULCE CISSE MD 12/14/16 Chlordiazepoxide* (Chlordiazepoxide*) 25 Mg Capsule, 25 MG PO Q8 Y for CONTROL WITHDRAWAL SYMPTOMS, #30 CAP Prov:PAUL COLLINS 11/20/16 Loperamide Hcl* (Imodium*) 2 Mg Capsule, 2 MG PO .WITH EACH DIARRHEA Y for DIARRHEA for 3 Days, CAP MAX 16 mg/day Prov:BELLOSTEVE CONNELLY 11/15/16 Dicyclomine Hcl* (Bentyl*) 10 Mg Capsule, 10 MG PO QID for 3 Days, CAP Prov:STEVE MONSALVE 11/15/16 Famotidine* (Pepcid*) 20 Mg Tablet, 20 MG PO BID for 7 Days, TAB Prov:STEVE MONSALVE C 11/15/16 Cephalexin* (Keflex*) 500 Mg Capsule, 500 MG PO TID for 5 Days, CAP Prov:BECCA MUELLER DO 11/14/16 Ferrous Sulfate* (Ferrous Sulfate*) 325 Mg Tabec, 325 MG PO BID, #30 TAB Prov:BECCA MUELLER DO 11/14/16 Ranitidine Hcl* (Zantac*) 150 Mg Tablet, 150 MG PO BID Y for EPIGASTRIC PAIN, # 30 TAB Prov:BECCA MUELLER DO 11/14/16 Diphenoxylate Hcl-Atropine* (Lomotil*) 5 Ml Soln, 5 ML GTB Q6H Y for DIARRHEA, # 14 ML Prov:BECCA MUELLER DO 11/14/16 Ondansetron (Zofran Odt) 4 Mg Tab.rapdis, 4 MG PO Q6, #10 Prov:BECCA MUELLER DO 11/14/16 Pantoprazole* (Protonix*) 40 Mg Tablet.dr, 40 MG PO DAILY for 30 Days, TAB Prov:JOHNATHAN EDGAR 06/13/16 Allergies Allergies: Coded Allergies: No Known Allergy (Unverified , 11/14/16) PMhx/Soc History of Surgery: No (DENIES SURGICAL HX.) Anesthesia Reaction: No Hx Neurological Disorder: No Hx Respiratory Disorders: No Hx Cardiac Disorders: No Hx Psychiatric Problems: No Hx Miscellaneous Medical Probl: Yes (ALCOHOL ABUSE.) Hx Alcohol Use: Yes (heavy drinker) Hx Substance Use: Yes (meth 12/13/16) Hx Tobacco Use: Yes Smoking Status: Never smoker Physical Exam Vitals Vital Signs Date Time Temp Pulse Resp B/P Pulse Ox O2 Delivery O2 Flow Rate FiO2 12/18/16 10:39 98.2 90 18 138/85 99 Physical Exam Const: [] Alert, [id number] per Head: Atraumatic Eyes: Normal Conjunctiva ENT: Normal External Ears, Nose and Mouth. Neck: Full range of motion..~ No meningismus. Resp: Clear to auscultation bilaterally Cardio: Regular rate and rhythm, no murmurs Abd: Soft, minimal epigastric tenderness without Tuttle sign and no tenderness at McBurney's point. No rebound., non distended. Normal bowel sounds Skin: No petechiae or rashes Back: No midline or flank tenderness Ext: No cyanosis, or edema Neur: Awake and alert Psych: Normal Mood and Affect Result Diagram: 12/18/16 1150 12/18/16 1150 Results 24 hrs Laboratory Tests Test 12/18/16 11:50 White Blood Count 6.510^3/ul Red Blood Count 4.6310^6/ul Hemoglobin 9.9g/dl Hematocrit 33.2% Mean Corpuscular Volume 71.7fl Mean Corpuscular Hemoglobin 21.4pg Mean Corpuscular Hemoglobin Concent 29.8g/dl Red Cell Distribution Width 21.9% Platelet Count 13163^3/UL Mean Platelet Volume 10.3fl Neutrophils % 52.0% Lymphocytes % 38.9% Monocytes % 7.0% Eosinophils % 0.3% Basophils % 1.2% Nucleated Red Blood Cells % 0.0/100WBC Neutrophils # 3.410^3/ul Lymphocytes # 2.510^3/ul Monocytes # 0.510^3/ul Eosinophils # 0.010^3/ul Basophils # 0.110^3/ul Nucleated Red Blood Cells # 0.010^3/ul Urine Color LT. YELLOW Urine Clarity CLEAR Urine pH 6.0 Urine Specific [place] 1.010 Urine Ketones NEGATIVE Urine Nitrite NEGATIVE Urine Bilirubin NEGATIVE Urine Urobilinogen 0.2 E.U./dL Urine Leukocyte Esterase 1+ Urine Microscopic RBC 0-2/HPF Urine Microscopic WBC 5-10/HPF Urine Epithelial Cells FEW Urine Hemoglobin TRACE Urine Glucose NEGATIVE% Urine Total Protein NEGATIVE Sodium Level 137mmol/L Potassium Level 4.1mmol/L Chloride Level 98mmol/L Carbon Dioxide Level 25mmol/L Anion Gap 18 Blood Urea Nitrogen 9mg/dl Creatinine 0.58mg/dl Glucose Level 104mg/dl Calcium Level 8.9mg/dl Total Bilirubin 0.3mg/dl Direct Bilirubin 0.00mg/dl Indirect Bilirubin 0.3mg/dl Aspartate Amino Transf (AST/SGOT) 198IU/L Alanine Aminotransferase (ALT/SGPT) 81IU/L Alkaline Phosphatase 133IU/L Total Protein 9.3g/dl Albumin 4.5g/dl Globulin 4.80g/dl Albumin/Globulin Ratio 0.93 Lipase 531U/L Current Medications Medications (Trade) Dose Ordered Sig/Mirlande Route PRN Reason Start Time Stop Time Status Last Admin Dose Admin Ondansetron HCl (Zofran Inj) 4 mg ONCE STAT IV 12/18/16 11:38 12/18/16 11:40 DC 12/18/16 11:55 Famotidine (Pepcid Iv) 20 mg ONCE STAT IV 12/18/16 11:38 12/18/16 11:40 DC 12/18/16 11:55 Lorazepam (Ativan) 1 mg ONCE ONCE IV 12/18/16 12:00 12/18/16 12:01 DC 12/18/16 11:56 Procedures/MDM 90 was obtained. Hemoglobin is 9.9 which is similar to previous. There is no leukocytosis. Platelet count is normal. CMP and lipase normal except for slight elevation of lipase. Patient was given Ativan 1 mg IV, 1 L normal saline IV and Zofran 4 mg IV as well as Pepcid 20 mg IV. Patient had a benign abdomen on serial exam. Patient presents with diarrhea and epigastric pain and shakiness associated with heavy alcohol intake. He may have withdrawals or anxiety, gastroenteritis. Signs or symptoms do not suggest acute abdomen, appendicitis, Boerhaave syndrome, aneurysm or dissection, or signs to suggest a intra-abdominal infection or perforated ulcer. Patient is unable to tolerate p.o.'s. Patient was discharged home a short course of Pepcid and Zofran instructions to abstain from alcohol and follow-up with primary doctor. Return for fevers, vomiting, worsening pain, shortness of breath new worsening symptoms with primary doctor. Departure Diagnosis: Primary Impression: Alcohol abuse Additional Impression: Anxiety Condition: Stable Patient Instructions: Alcohol Abuse Additional Instructions: Examines normal hoy. Cheque otro vez con padilla doctor primario en el proximo de la cruz or regresa para mas o nueva simptomas. KARLA GARCIA MD Dec 18, 2016 12:37
[2016-12-18 12:45] VITALS: BP 121/72; PULSE 79; RESP 18
[2016-12-19] MEDS ORDERED: RANI75TA13 PO (05:15)
== END 2016-12-18 12:50 | disposition home or self-care (01) ==
LOC: FTE 10:34
DX: F10.10 Alcohol abuse, uncomplicated (principal); F41.9 Anxiety disorder, unspecified
CPT/HCPCS: 36415; 80053; 81001; 83690; 85025; 96374; 96375; J2060; J2405; Z7502; Z7610

== ENCOUNTER 2016-12-18 23:44 | Inpatient (IN) | payer MEDICAID ==
[~2016-12-18] VITALS: Ht 175.3 cm; Wt 98.4 kg
[~2016-12-18 23:44] MED LIST changes: +ONDA8TAB14 PO
[2016-12-19] MEDS ORDERED: SOD CHLORIDE 0.9% 1,000 ML IV STA (00:19)
[2016-12-19] MEDS ORDERED: ONDANSETRON 4 MG INJ IV STA (00:19)
[2016-12-19] MEDS ORDERED: morphine 4 MG/ML VIAL IV STA (00:19)
--- NOTE | 2016-12-19 00:25 | ERD ---
ER Documentation Chief Complaint Date/Time DATE: 12/19/16 TIME: 00:24 Chief Complaint abd pain x 1 day HPI 36-year-old male presents to emergency department for complaints of generalized abdominal pain nausea vomiting started this morning. Patient was seen in the emergency department this morning, was given medication to go home with, patient states that it is not helping, patient continues to have the abdominal pain and vomiting. Patient describes the pain as throbbing pain, 8/10 scale, radiates from generalized abdominal area to the back area accompanied with vomiting. Patient denies any blurriness or black stool. Patient denies any blood in the vomit. Patient's last alcohol intake was this morning. ROS All systems reviewed and are negative except as per history of present illness. Medications Home Meds Active Scripts Famotidine* (Pepcid*) 20 Mg Tablet, 20 MG PO BID for 10 Days, TAB Prov:KARLA GARCIA MD 12/18/16 Ondansetron (Ondansetron Odt) 8 Mg Tab.rapdis, 8 MG PO Q6H Y for NAUSEA AND/OR VOMITING, #10 TAB Prov:KARLA GARCIA MD 12/18/16 Chlordiazepoxide* (Chlordiazepoxide*) 10 Mg Capsule, 10 MG PO BID for CONTROL WITHDRAWAL SYMPTOMS, #15 CAP Prov:DULCE CISSE MD 12/14/16 Mag Hydrox/Al Hydrox/Simeth (Maalox Plus X-Strength Susp) 355 Ml Oral.susp, 2 TSP PO TID for PAIN, #24 Prov:DULCE CISSE MD 12/14/16 Ondansetron Hcl* (Zofran*) 4 Mg Tablet, 4 MG PO Q8H Y for NAUSEA AND/OR VOMITING , #15 TAB Prov:DULCE CISSE MD 12/14/16 Chlordiazepoxide* (Chlordiazepoxide*) 25 Mg Capsule, 25 MG PO Q8 Y for CONTROL WITHDRAWAL SYMPTOMS, #30 CAP Prov:PAUL COLLINS 11/20/16 Loperamide Hcl* (Imodium*) 2 Mg Capsule, 2 MG PO .WITH EACH DIARRHEA Y for DIARRHEA for 3 Days, CAP MAX 16 mg/day Prov:STEVE MONSALVE 11/15/16 Dicyclomine Hcl* (Bentyl*) 10 Mg Capsule, 10 MG PO QID for 3 Days, CAP Prov:BELLO,STEVE C 11/15/16 Famotidine* (Pepcid*) 20 Mg Tablet, 20 MG PO BID for 7 Days, TAB Prov:BELLO,STEVE C 11/15/16 Cephalexin* (Keflex*) 500 Mg Capsule, 500 MG PO TID for 5 Days, CAP Prov:BECCA MUELLER DO 11/14/16 Ferrous Sulfate* (Ferrous Sulfate*) 325 Mg Tabec, 325 MG PO BID, #30 TAB Prov:BECCA MUELLER DO 11/14/16 Ranitidine Hcl* (Zantac*) 150 Mg Tablet, 150 MG PO BID Y for EPIGASTRIC PAIN, # 30 TAB Prov:BECCA MUELLER DO 11/14/16 Diphenoxylate Hcl-Atropine* (Lomotil*) 5 Ml Soln, 5 ML GTB Q6H Y for DIARRHEA, # 14 ML Prov:BECCA MUELLER DO 11/14/16 Ondansetron (Zofran Odt) 4 Mg Tab.rapdis, 4 MG PO Q6, #10 Prov:BECCA MUELLER DO 11/14/16 Pantoprazole* (Protonix*) 40 Mg Tablet.dr, 40 MG PO DAILY for 30 Days, TAB Prov:JOHNATHAN EDGAR 06/13/16 Allergies Allergies: Coded Allergies: No Known Allergy (Unverified , 11/14/16) PMhx/Soc History of Surgery: No (DENIES SURGICAL HX.) Anesthesia Reaction: No Hx Neurological Disorder: No Hx Respiratory Disorders: No Hx Cardiac Disorders: No Hx Psychiatric Problems: No Hx Miscellaneous Medical Probl: Yes (ALCOHOL ABUSE.) Hx Alcohol Use: Yes (heavy drinker) Hx Substance Use: Yes (meth 12/13/16) Hx Tobacco Use: Yes Smoking Status: Current every day smoker FmHx Family History: No coronary disease, No diabetes, No other Physical Exam Vitals Vital Signs Date Time Temp Pulse Resp B/P Pulse Ox O2 Delivery O2 Flow Rate FiO2 12/18/16 23:50 98.5 110 20 137/80 98 Physical Exam GENERAL: The patient is well developed and appropriate for usual state of health, in no apparent distress. CHEST: Clear to auscultation bilaterally. There are no rales, wheezes or rhonchi. HEART: Regular rate and rhythm. No murmurs, clicks, rubs or gallops. No S3 or S4. ABDOMEN: Soft, generalized abdominal tenderness noted. Good bowel sounds. No rebound or guarding. No gross peritonitis. No gross organomegaly or masses. No Tuttle sign or McBurney point tenderness. BACK: No midline or flank tenderness. EXTREMITIES: Equal pulses bilaterally. There is no peripheral clubbing, cyanosis or edema. No focal swelling or erythema. Full range of motion. Grossly neurovascularly intact. NEURO: Alert and oriented. Cranial nerves 2-12 intact. Motor strength in all 4 extremities with 5/5 strength. Sensation grossly intact. Normal speech and gait. SKIN: There is no apparent rash or petechia. The skin is warm and dry. HEMATOLOGIC AND LYMPHATIC: There is no evidence of excessive bruising or lymphedema. No gross cervical, axillary, or inguinal lymphadenopathy. Result Diagram: 12/19/16 0035 12/19/16 003 Results 24 hrs Laboratory Tests Test 12/19/16 00:30 12/19/16 00:35 Urine Color LT. YELLOW Urine Clarity CLEAR Urine pH 5.5 Urine Specific [place] 1.025 Urine Ketones NEGATIVE Urine Nitrite NEGATIVE Urine Bilirubin NEGATIVE Urine Urobilinogen 0.2 E.U./dL Urine Leukocyte Esterase 1+ Urine Microscopic RBC 0-2/HPF Urine Microscopic WBC 25-50/HPF Urine Squamous Epithelial Cells FEW Urine Bacteria MODERATE Urine Hemoglobin NEGATIVE Urine Glucose NEGATIVE% Urine Total Protein NEGATIVE White Blood Count 9.610^3/ul Red Blood Count 4.5310^6/ul Hemoglobin 9.8g/dl Hematocrit 32.6% Mean Corpuscular Volume 72.0fl Mean Corpuscular Hemoglobin 21.6pg Mean Corpuscular Hemoglobin Concent 30.1g/dl Red Cell Distribution Width 21.7% Platelet Count 49050^3/UL Mean Platelet Volume 10.8fl Neutrophils % 72.8% Lymphocytes % 16.6% Monocytes % 9.2% Eosinophils % 0.4% Basophils % 0.7% Nucleated Red Blood Cells % 0.0/100WBC Neutrophils # 6.910^3/ul Lymphocytes # 1.610^3/ul Monocytes # 0.910^3/ul Eosinophils # 0.010^3/ul Basophils # 0.110^3/ul Nucleated Red Blood Cells # 0.010^3/ul Sodium Level 136mmol/L Potassium Level 3.9mmol/L Chloride Level 100mmol/L Carbon Dioxide Level 22mmol/L Anion Gap 18 Blood Urea Nitrogen 7mg/dl Creatinine 0.56mg/dl Glucose Level 103mg/dl Calcium Level 9.3mg/dl Total Bilirubin 0.6mg/dl Direct Bilirubin 0.00mg/dl Indirect Bilirubin 0.6mg/dl Aspartate Amino Transf (AST/SGOT) 244IU/L Alanine Aminotransferase (ALT/SGPT) 78IU/L Alkaline Phosphatase 139IU/L Total Protein 8.8g/dl Albumin 4.4g/dl Globulin 4.40g/dl Albumin/Globulin Ratio 1.00 Lipase 516U/L Current Medications Medications (Trade) Dose Ordered Sig/Mirlande Route PRN Reason Start Time Stop Time Status Last Admin Dose Admin Sodium Chloride (NS) 1,000 ml @ 1,000 mls/hr Q1H STAT IV 12/19/16 00:19 12/19/16 01:18 DC 12/19/16 00:36 Morphine Sulfate (morphine) 4 mg ONCE STAT IV 12/19/16 00:19 12/19/16 00:20 DC 12/19/16 00:36 Ondansetron HCl (Zofran Inj) 4 mg ONCE STAT IV 12/19/16 00:19 12/19/16 00:20 DC 12/19/16 00:36 Patient was given medication for pain here in emergency department, after treatment, patient verbalized feeling much better. Patient's pain is improved.Patient was given Zofran here in the emergency department. After treatment, patient was able to tolerate po fluids here in the emergency department without any vomiting. There is no signs and symptoms of dehydration. Normal saline IV bolus was given here in emergency department for rehydration, patient tolerated IV fluids. PROCEDURE: CT ABDOMEN/PELVIS WITHOUT CONTRAST CLINICAL INDICATION: 36-year-old male with abdominal pain. TECHNIQUE: The study was performed utilizing a [employer] 64-slice CT scanner. Direct axial sections were obtained through the abdomen and pelvis without the use of intravenous contrast material. Sagittal and coronal reformations were obtained. One or more of the following dose reduction techniques were utilized: automated exposure control, adjustment of the mA and/ or kV according to patient's size or use of iterative reconstruction technique. The images were reviewed on a PACS workstation. CTD/vol = 18.0 mGy; Total Exam DLP = 1258.1 mGy-cm. COMPARISON: CT abdomen/pelvis May 13, 2012. FINDINGS: There is trace left basilar subsegmental atelectasis. There is no evidence for significant pleural effusion. The liver has a normal contour and is enlarged having a maximal length of 32.3 cm. There is diffuse decreased density throughout the liver consistent with fatty infiltration but without focal areas of abnormal density. No intrahepatic nor extrahepatic biliary ductal dilatation is seen. The gallbladder demonstrates no wall thickening nor pericholecystic fluid. No biliary stones are evident. The distal pancreatic body and tail are edematous with peripancreatic inflammatory changes and minimal fluid within the anterior pararenal space consistent with acute pancreatitis as previously visualized. Note that the pancreatic tail has a mass-like appearance measuring approximately 2.4 x 2.5 x 2.5 cm and underlying pancreatic mass cannot be totally excluded. The spleen is identified and has a normal size without abnormal density. The adrenal glands are unremarkable. The kidneys are without abnormal density. No hydroureteronephrosis nor nephroureterolithiasis is evident. The urinary bladder contains urine with a thickened wall measuring up to 16 mm. There is no evidence for bowel obstruction. There is a small umbilical hernia with an opening of 8.9 mm containing fat. Multiple small diverticula seen within the sigmoid colon without surrounding inflammatory changes. The appendix is visualized and is without abnormal thickening or surrounding inflammatory reaction. There are minimal bilateral inguinal hernias containing fat. There is no significant pelvic free fluid. The aortoiliac vessels are without aneurysmal dilatation. The osseous structures are intact. IMPRESSION: 1. Hepatomegaly with diffuse fatty infiltration. 2. Edematous distal pancreatic body and tail with peripancreatic inflammatory changes and minimal fluid within the anterior pararenal space consistent with acute pancreatitis. Note that there is a bulbous mass-like appearance to the pancreatic tail an underlying pancreatic mass cannot be excluded. The appearance however is similar to the patient's prior study from 2011. 3. No CT evidence for appendicitis. 4. Sigmoid diverticulosis. 5. Persistent diffuse bladder wall thickening. 6. Minimal bilateral inguinal hernias containing fat. .Harrison Leon MD, MD Date Time Electronically viewed and signed by .Harrison Leon MD, on 12/19/2016 03:05 .M/ CC: ANGELICA DAMIAN NP Procedures/MDM Medical Decision Making: This 36-year-old male has acute pancreatitis, patient needs to be admitted to the hospital for further evaluation and treatment, patient will be admitted to the hospitalist, Dr. Don. Patient stable at this time. Departure Diagnosis: Primary Impression: Acute pancreatitis Pancreatitis type: alcohol induced Acute pancreatitis complication: unspecified Qualified Code: K85.20 - Alcohol-induced acute pancreatitis, unspecified complication status Condition: Fair ANGELICA DAMIAN NP Dec 19, 2016 00:25
[2016-12-19 00:47] LABS: ADD SCAN DIFF NO
[2016-12-19 00:49] LABS: ADD UMIC YES; URINE BILIRUBIN (Dip) NEGATIVE (NEGATIVE); URINE BLOOD (Dip) NEGATIVE (NEGATIVE); URINE COLOR LT. YELLOW (YELLOW); URINE GLUCOSE (Dip) NEGATIVE (NEGATIVE); URINE KETONES (Dip) NEGATIVE (NEGATIVE); URINE LEUKOCYTE ESTERASE (Dip) 1+ (NEGATIVE); URINE NITRITE (Dip) NEGATIVE (NEGATIVE); URINE TOTAL PROTEIN (Dip) NEGATIVE (NEGATIVE); URINE UROBILINOGEN (Dip) 0.2 E.U./dL (0.1-1.0)
[2016-12-19 00:49] LABS: BASOPHIL # 0.1 10^3/ul (0.0-0.1); BASOPHILS % 0.7 % (0.0-2.0); EOSINOPHILS % 0.4 % (0.0-7.0); HEMATOCRIT 32.6 % (42.0-52.0); HEMOGLOBIN 9.8 g/dl (14.0-18.0); LYMPHOCYTES # 1.6 10^3/ul (0.8-2.9); LYMPHOCYTES % 16.6 % (15.0-51.0); MEAN CORPUSCULAR HEMOGLOBIN 21.6 pg (29.0-33.0); MEAN CORPUSCULAR HGB CONC 30.1 g/dl (32.0-37.0); MEAN PLATELET VOLUME 10.8 fl (7.4-10.4); MONOCYTE # 0.9 10^3/ul (0.3-0.9); MONOCYTES % 9.2 % (0.0-11.0); NEUTROPHIL # 6.9 10^3/ul (1.6-7.5); NEUTROPHILS % 72.8 % (39.0-77.0); PLATELET COUNT 174 10^3/UL (140-415); RED BLOOD COUNT 4.53 10^6/ul (4.70-6.10); RED CELL DISTRIBUTION WIDTH 21.7 % (11.5-14.5); WHITE BLOOD COUNT 9.6 10^3/ul (4.8-10.8)
[2016-12-19 01:17] LABS: ALBUMIN 4.4 g/dl (3.3-4.9); BILIRUBIN,INDIRECT 0.6 mg/dl (0-1.1); BILIRUBIN,TOTAL 0.6 mg/dl (0.2-1.3); CALCIUM 9.3 mg/dl (8.4-10.2); CREATININE 0.56 mg/dl (0.61-1.24); POTASSIUM 3.9 mmol/L (3.5-5.1); TOTAL PROTEIN 8.8 g/dl (6.1-8.1)
[2016-12-19 01:25] LABS: BACTERIA,URINE MODERATE; SQUAMOUS EPITHELIAL CELL,UR FEW; URINE RBCS 0-2 /HPF (0)
--- NOTE | 2016-12-19 03:05 | RADRPT ---
PROCEDURE: CT ABDOMEN/PELVIS WITHOUT CONTRAST CLINICAL INDICATION: 36-year-old male with abdominal pain. TECHNIQUE: The study was performed utilizing a GE [employer] VCT 64-slice CT scanner. Direct axia l sections were obtained through the abdomen and pelvis without the use of intravenous contrast mate rial. Sagittal and coronal reformations were obtained. One or more of the following dose reduction t echniques were utilized: automated exposure control, adjustment of the mA and/or kV according to pat ient's size or use of iterative reconstruction technique. The images were reviewed on a PACS workst atUnruly. CTD/vol = 18.0 mGy; Total Exam DLP = 1258.1 mGy-cm. COMPARISON: CT abdomen/pelvis May 13, 2012. FINDINGS: There is trace left basilar subsegmental atelectasis. There is no evidence for significant pleural e ffusion. The liver has a normal contour and is enlarged having a maximal length of 32.3 cm. There is diffuse decreased density throughout the liver consistent with fatty infiltration but without foc al areas of abnormal density. No intrahepatic nor extrahepatic biliary ductal dilatation is seen. Th e gallbladder demonstrates no wall thickening nor pericholecystic fluid. No biliary stones are evide nt. The distal pancreatic body and tail are edematous with peripancreatic inflammatory changes and m inimal fluid within the anterior pararenal space consistent with acute pancreatitis as previously vi sualized. Note that the pancreatic tail has a mass-like appearance measuring approximately 2.4 x 2. 5 x 2.5 cm and underlying pancreatic mass cannot be totally excluded. The spleen is identified and h as a normal size without abnormal density. The adrenal glands are unremarkable. The kidneys are without abnormal density. No hydroureteronephrosis nor nephroureterolithiasis is evident. The urinar y bladder contains urine with a thickened wall measuring up to 16 mm. There is no evidence for bowel obstruction. There is a small umbilical hernia with an opening of 8.9 mm containing fat. Multiple small diverticula seen within the sigmoid colon without surrounding inflammatory changes. The appen rishi is visualized and is without abnormal thickening or surrounding inflammatory reaction. There are minimal bilateral inguinal hernias containing fat. There is no significant pelvic free fluid. The aortoiliac vessels are without aneurysmal dilatation. The osseous structures are intact. IMPRESSION: 1. Hepatomegaly with diffuse fatty infiltration. 2. Edematous distal pancreatic body and tail with peripancreatic inflammatory changes and minimal f luid within the anterior pararenal space consistent with acute pancreatitis. Note that there is a b ulbous mass-like appearance to the pancreatic tail an underlying pancreatic mass cannot be excluded. The appearance however is similar to the patient's prior study from 2011. 3. No CT evidence for appendicitis. 4. Sigmoid diverticulosis. 5. Persistent diffuse bladder wall thickening. 6. Minimal bilateral inguinal hernias containing fat. .Harrison Leon MD, MD Date Time Electronically viewed and signed by .Harrison Leon MD, MD on 12/19/2016 03:05 .M/
[2016-12-19] MEDS ORDERED: RANI75TA13 PO (05:15)
[2016-12-19] MEDS ORDERED: ALBUTEROL/IPRATROPIUM (NEB) 3 ML AMP HHN PRN (06:30)
[2016-12-19] MEDS ORDERED: morphine 4 MG/ML VIAL IV PRN (06:30)
[2016-12-19] MEDS ORDERED: NACL 0.9% 3 ML SYG IV SCH (06:30)
[2016-12-19 06:52] VITALS: TEMP 99.7
[2016-12-19] MEDS ORDERED: LORAZEPAM 2 MG INJ IV PRN ×2 (07:00)
[2016-12-19] MEDS: MULTIVITAMINS 10 ML, THIAMINE 100 MG, FOLIC ACID 1 MG in SOD CHLORIDE 0.9% 1,000 ML IVPB SCH (09:04)
[2016-12-19] MEDS: ONDANSETRON 4 MG INJ IV PRN ×2 (09:05→21:28)
[2016-12-19] MEDS: PANTOPRAZOLE 40 MG INJ IV SCH (09:12)
[2016-12-19 09:35] LABS: ADD SCAN DIFF NO
[2016-12-19 09:39] LABS: BASOPHILS % 0.5 % (0.0-2.0); EOSINOPHILS % 0.3 % (0.0-7.0); HEMATOCRIT 29.7 % (42.0-52.0); HEMOGLOBIN 8.8 g/dl (14.0-18.0); LYMPHOCYTES # 1.3 10^3/ul (0.8-2.9); LYMPHOCYTES % 16.3 % (15.0-51.0); MEAN CORPUSCULAR HEMOGLOBIN 21.5 pg (29.0-33.0); MEAN CORPUSCULAR HGB CONC 29.6 g/dl (32.0-37.0); MEAN CORPUSCULAR VOLUME 72.4 fl (82.0-101.0); MONOCYTE # 0.7 10^3/ul (0.3-0.9); NEUTROPHIL # 5.7 10^3/ul (1.6-7.5); NEUTROPHILS % 73.6 % (39.0-77.0); PLATELET COUNT 148 10^3/UL (140-415); RED CELL DISTRIBUTION WIDTH 20.8 % (11.5-14.5); WHITE BLOOD COUNT 7.8 10^3/ul (4.8-10.8)
[2016-12-19 09:54] LABS: ALBUMIN 4.3 g/dl (3.3-4.9); ALBUMIN/GLOBULIN RATIO 1.1; BILIRUBIN,INDIRECT 0.9 mg/dl (0-1.1); BILIRUBIN,TOTAL 0.9 mg/dl (0.2-1.3); CALCIUM 8.5 mg/dl (8.4-10.2); CREATININE 0.5 mg/dl (0.61-1.24); MAGNESIUM 1.8 mg/dl (1.7-2.5); PHOSPHORUS 3.1 mg/dl (2.5-4.9); POTASSIUM 3.7 mmol/L (3.5-5.1); TOTAL PROTEIN 8.2 g/dl (6.1-8.1)
[2016-12-19 16:11] LABS: IRON 96 ug/dl (35-150)
[2016-12-19 16:20] LABS: TOTAL IRON BINDING CAPACITY 333 ug/dl (241-421)
--- NOTE | 2016-12-19 16:53 | PN ---
Date/Time of Note Date/Time of Note DATE: 12/19/16 TIME: 16:50 Assessment/Plan VTE Prophylaxis VTE Prophylaxis Intervention: SCD's Assessment/Plan Chief Complaint/Hosp Course Assessment and plan 1. Acute pancreatitis (alcohol induced). Patient on n.p.o. diet for now. Continue IV hydration as well as analgesics. Monitor lipase levels. Will advance diet pain subsides. 2. Transaminitis secondary to alcoholism. Patient is report 12 year history of drinking 6 beers a day. Cessation was advised. LFT trend downward enzymes downtrending. Will monitor for now. 3. Anemia. Follow-up on iron panel. H&H remained stable at present. The patient denies any hematochezia hemoptysis or hematemesis. Will monitor for now. 4. Alcohol abuse. Cessation advised Disposition plan: Continue with analgesics. Continue IV hydration. Await for clinical improvement of pancreatitis. Discussed plan of care with Dr. Soto Problems: Subjective 24 Hr Interval Summary Free Text/Dictation Patient still with abdominal pain on epigastric area 6 out of 10. Exam/Review of Systems Vital Signs Vitals Vital Signs Date Time Temp Pulse Resp B/P Pulse Ox O2 Delivery O2 Flow Rate FiO2 12/19/16 16:11 79 20 118/77 99 Room Air 12/19/16 06:52 99.7 Exam Constitutional: alert, oriented Head: normocephalic Neck: supple Respiratory: clear to auscultation, normal air movement Cardiovascular: regular rate and rhythm Gastrointestinal: soft, tender Musculoskeletal: nl extremities to inspection Neurological: ELASTIC TAPE INSERTER II-XII intact, nl mental status Results Result Diagram: 12/19/1692412/19/16 0925 Results 24 hrs Laboratory Tests Test 12/19/16 00:30 12/19/16 00:35 12/19/16 09:25 Urine Color LT. YELLOW Urine Clarity CLEAR Urine pH 5.5 Urine Specific [place] 1.025 Urine Ketones NEGATIVE Urine Nitrite NEGATIVE Urine Bilirubin NEGATIVE Urine Urobilinogen 0.2 E.U./dL Urine Leukocyte Esterase 1+ H Urine Microscopic RBC 0-2 Urine Microscopic WBC 25-50 Urine Squamous Epithelial Cells FEW Urine Bacteria MODERATE Urine Hemoglobin NEGATIVE Urine Glucose NEGATIVE Urine Total Protein NEGATIVE White Blood Count 9.6 # 7.8 Red Blood Count 4.53 L 4.10 L Hemoglobin 9.8 L 8.8 L Hematocrit 32.6 L 29.7 L Mean Corpuscular Volume 72.0 L 72.4 L Mean Corpuscular Hemoglobin 21.6 L 21.5 L Mean Corpuscular Hemoglobin Concent 30.1 L 29.6 L Red Cell Distribution Width 21.7 H 20.8 H Platelet Count 174 148 Mean Platelet Volume 10.8 H 11.0 H Neutrophils % 72.8 73.6 Lymphocytes % 16.6 16.3 Monocytes % 9.2 9.0 Eosinophils % 0.4 0.3 Basophils % 0.7 0.5 Nucleated Red Blood Cells % 0.0 0.0 Neutrophils # 6.9 5.7 Lymphocytes # 1.6 1.3 Monocytes # 0.9 0.7 Eosinophils # 0.0 0.0 Basophils # 0.1 0.0 Nucleated Red Blood Cells # 0.0 0.0 Sodium Level 136 136 Potassium Level 3.9 3.7 Chloride Level 100 101 Carbon Dioxide Level 22 26 Anion Gap 18 H 13 Blood Urea Nitrogen 7 3 L Creatinine 0.56 L 0.50 L Glucose Level 103 130 Calcium Level 9.3 8.5 Total Bilirubin 0.6 0.9 Direct Bilirubin 0.00 0.00 Indirect Bilirubin 0.6 0.9 Aspartate Amino Transf (AST/SGOT) 244 H 156 H Alanine Aminotransferase (ALT/SGPT) 78 H 65 Alkaline Phosphatase 139 H 124 H Total Protein 8.8 H 8.2 H Albumin 4.4 4.3 Globulin 4.40 H 3.90 H Albumin/Globulin Ratio 1.00 1.10 Lipase 516 H Phosphorus Level 3.1 Magnesium Level 1.8 Iron Level 96 Total Iron Binding Capacity 333 Percent Iron Saturation 29 Medications Medications Current Medications Ondansetron HCl (Zofran Inj) 4 mg Q6H PRN IV NAUSEA AND/OR VOMITING Last administered on 12/19/16 09:05; Admin Dose 4 MG; Start 12/19/16 at 06:30 Morphine Sulfate 4 mg 4 mg Q4H PRN IV SEVERE PAIN LEVEL 7-10 Last administered on 12/19/16 09:11; Admin Dose 4 MG; Start 12/19/16 at 06:30 Multivitamins/ Thiamine HCl/ Folic Acid/Sodium Chloride (Mvi Adult/ Vitamin B1/ Folic Acid/NS) 1,011.2 ml @ 125 mls/ hr DAILY@09 IVPB Last administered on 12/19 09:04; Admin Dose 125 MLS/HR; Start 12/19/16 at 09:00; Stop 12/22/16 at 09: 00 Lorazepam (Ativan) 1 mg Q3 PRN IV anxiety; Start 12/19/16 at 07:00 Lorazepam (Ativan) 2 mg Q1H PRN IV etoh withdrawal; Start 12/19/16 at 07:00 Pantoprazole (Protonix Iv) 40 mg DAILY@06 IV Last administered on 12/19/16 09: 12; Admin Dose 40 MG; Start 12/19/16 at 07:30 JOHNATHAN EDGAR Dec 19, 2016 16:53
[2016-12-19 17:00] VITALS: BP 135/70; PULSE 97; RESP 16
[2016-12-19 17:07] VITALS: Ht 175.3 cm; Wt 98.4 kg
[2016-12-19] MEDS: morphine 2 MG INJ IV PRN ×2 (18:21→21:28)
[2016-12-19 19:25] VITALS: BP 129/70; RESP 20
[2016-12-19] MEDS: DEXTROSE 5%-0.45% NACL 1,000 ML IV SCH (20:29)
[2016-12-20] MEDS: DEXTROSE 5%-0.45% NACL 1,000 ML IV SCH ×6 (02:29→22:29)
[2016-12-20] MEDS: PANTOPRAZOLE 40 MG INJ IV SCH (05:22)
--- NOTE | 2016-12-20 07:03 | HP ---
DATE OF ADMISSION: 12/19/2016 CHIEF COMPLAINT: Abdominal pain. 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 He stated the pain has been goi ng on for 1 day and associated with nonbilious, nonbloody vomiting. He stated that he has been stil l drinking heavily, his last drink being yesterday morning. When he presented to the ER, he was tachycardic with a heart rate of 110 table. LABORATORIES: Hemoglobin of 9.8, AST 244, ALT 78, alkaline phosphatase 139 and lipase was 516. IMAGING: A CT abdomen and pelvis without contrast shows findings consistent with acute pancreatitis . Also noted bulbous the pancreatic tail with an underlying pancreatic mass that cannot be ex cluded. However, the same appearance on the prior CT from . Also noted on the CAT scan was h epatomegaly with diffuse fatty infiltration, sigmoid diverticulosis and a persistent diffuse bladder wall thickening. He was given pain medication, antiemetics and IV . REVIEW OF SYSTEMS: A 12-point review of systems negative except as in the HPI. PAST MEDICAL HISTORY: As per HPI. PAST SURGICAL HISTORY: Denies. The patient only had an EGD with a finding of last year. SOCIAL HISTORY: The patient drinks alcohol heavily. Also he uses methamphetamine, last use was 5 d ays ago. ALLERGIES: NO KNOWN DRUG ALLERGIES. HOME MEDICATIONS: 1. Bentyl. 2. Ferrous sulfate. 3. Pepcid. 4. Zofran. 5. Protonix. 6. Zantac. PHYSICAL EXAMINATION: VITAL SIGNS: Stable. GENERAL: The patient looks sleepy, but arousable, in no acute distress. HEENT: No obvious head deformity. Pupils react to light. Extraocular muscles intact. CARDIOVASCULAR: Regular rate and rhythm. No extra sounds. LUNGS: Clear. ABDOMEN: Soft with tenderness diffusely to deep palpation, without guarding, rebound tenderness or rigidity. EXTREMITIES: No edema. NEUROLOGIC: No focal deficit. LABORATORIES: Pertinent positive results mentioned in HPI. IMAGING: CT abdomen and pelvis with results as mentioned in the HPI. IMPRESSION: 1. Acute alcoholic pancreatitis. 2. Abdominal pain, possibly related to above. 3. History of alcohol abuse. 4. History of methamphetamine use. 5. History of GI bleed secondary to Autumn-Chapin tear. 6. Elevated transaminases, secondary to alcoholic liver and fatty liver. PLAN: 1. Will keep n.p.o. He will receive IV fluids and will alternate it with a banana bag. He will r eceive Ativan as needed for withdrawal symptoms. Meanwhile, if his pain improves, we will transitio n him to n.p.o. except meds and will provide Librium. 2. We will provide pain medication and antiemetic as needed. 3. The patient has been advised to be abstinent from alcohol and also methamphetamine. Dictated By: PAUL HA/PARAS Conf#: [id number] DID#: [id number]
[2016-12-20 08:03] VITALS: BP 135/80; RESP 20
[2016-12-20] MEDS: MULTIVITAMINS 10 ML, THIAMINE 100 MG, FOLIC ACID 1 MG in SOD CHLORIDE 0.9% 1,000 ML IVPB SCH (09:46)
[2016-12-20 11:41] LABS: ADD SCAN DIFF NO
[2016-12-20 12:01] LABS: ABNORMAL IP MESSAGE 1; BASOPHIL # 0.1 10^3/ul (0.0-0.1); BASOPHILS % 0.5 % (0.0-2.0); EOSINOPHILS % 0.3 % (0.0-7.0); HEMATOCRIT 33.6 % (42.0-52.0); HEMOGLOBIN 9.6 g/dl (14.0-18.0); LYMPHOCYTES # 2.3 10^3/ul (0.8-2.9); LYMPHOCYTES % 16.9 % (15.0-51.0); MEAN CORPUSCULAR HEMOGLOBIN 21.4 pg (29.0-33.0); MEAN CORPUSCULAR HGB CONC 28.6 g/dl (32.0-37.0); MEAN CORPUSCULAR VOLUME 74.8 fl (82.0-101.0); MONOCYTES % 7.5 % (0.0-11.0); NEUTROPHILS % 74.1 % (39.0-77.0); NUCLEATED RED BLOOD CELLS% 0.1 /100WBC (0.0-0.0); PLATELET COUNT 193 10^3/UL (140-415); RED BLOOD COUNT 4.49 10^6/ul (4.70-6.10); WHITE BLOOD COUNT 13.4 10^3/ul (4.8-10.8)
[2016-12-20 12:04] LABS: ALBUMIN 4.5 g/dl (3.3-4.9); ALBUMIN/GLOBULIN RATIO 1.07; BILIRUBIN,INDIRECT 1.3 mg/dl (0-1.1); BILIRUBIN,TOTAL 1.3 mg/dl (0.2-1.3); CALCIUM 8.8 mg/dl (8.4-10.2); CREATININE 0.76 mg/dl (0.61-1.24); POTASSIUM 3.9 mmol/L (3.5-5.1); TOTAL PROTEIN 8.7 g/dl (6.1-8.1)
--- NOTE | 2016-12-20 16:12 | PN ---
Date/Time of Note Date/Time of Note DATE: 12/20/16 TIME: 16:09 Assessment/Plan VTE Prophylaxis VTE Prophylaxis Intervention: SCD's Lines/Catheters IV C[facility]ter Type (from [facility]): Peripheral IV Assessment/Plan Chief Complaint/Hosp Course Assessment and plan 1. Acute pancreatitis (alcohol induced). Trial clear liquid diet today. Continue with analgesics as needed 2. Transaminitis secondary to alcoholism. Patient is report 12 year history of drinking 6 beers a day. Cessation was advised. 3. Anemia. Follow-up on iron panel. H&H remained stable at present. The patient denies any hematochezia hemoptysis or hematemesis. Will monitor for now. 4. Alcohol abuse. Cessation advised Disposition plan: Start on clear liquid diet. Continue with analgesics. Anticipate discharge within the next 24 hours if able to tolerate regular diet Discussed plan of care with Dr. Soto Problems: Subjective 24 Hr Interval Summary Free Text/Dictation Still has some abdominal pain epigastric area but less today Exam/Review of Systems Vital Signs Vitals Vital Signs Date Time Temp Pulse Resp B/P Pulse Ox O2 Delivery O2 Flow Rate FiO2 12/20/16 08:03 100.2 20 135/80 97 12/19/16 19:25 97 12/19/16 17:00 Room Air Intake and Output 12/19/16 12/19/16 12/20/16 15:00 23:00 07:00 Intake Total 1011.2 ml 1300 ml Output Total 600 ml Balance 1011.2 ml 700 ml Exam Constitutional: alert, oriented Psych: no complaints Head: normocephalic Neck: supple, No jvd Respiratory: clear to auscultation Cardiovascular: regular rate and rhythm Gastrointestinal: soft, tender Musculoskeletal: nl extremities to inspection, nl gait and stance Neurological: CELLULOID TRIMMER II-XII intact, nl mental status, nl speech Results Result Diagram: 12/20/16 1125 12/20/16 1125 Results 24 hrs Laboratory Tests Test 12/20/16 11:25 White Blood Count 13.4 #H Red Blood Count 4.49 L Hemoglobin 9.6 L Hematocrit 33.6 L Mean Corpuscular Volume 74.8 L Mean Corpuscular Hemoglobin 21.4 L Mean Corpuscular Hemoglobin Concent 28.6 L Red Cell Distribution Width 22.0 H Platelet Count 193 # Mean Platelet Volume 11.0 H Neutrophils % 74.1 Lymphocytes % 16.9 Monocytes % 7.5 Eosinophils % 0.3 Basophils % 0.5 Nucleated Red Blood Cells % 0.1 H Neutrophils # 10.0 H Lymphocytes # 2.3 Monocytes # 1.0 H Eosinophils # 0.0 Basophils # 0.1 Nucleated Red Blood Cells # 0.0 Sodium Level 138 Potassium Level 3.9 Chloride Level 103 Carbon Dioxide Level 25 Anion Gap 14 Blood Urea Nitrogen 2 L Creatinine 0.76 Glucose Level 123 Calcium Level 8.8 Total Bilirubin 1.3 Direct Bilirubin 0.00 Indirect Bilirubin 1.3 H Aspartate Amino Transf (AST/SGOT) 95 H Alanine Aminotransferase (ALT/SGPT) 53 Alkaline Phosphatase 120 Total Protein 8.7 H Albumin 4.5 Globulin 4.20 H Albumin/Globulin Ratio 1.07 Lipase 237 Medications Medications Current Medications Dextrose/Sodium Chloride (D5-1/2ns) 1,000 ml @ 150 mls/hr Q6H40M IV Last administered on 12/20/16 03:03; Admin Dose 150 MLS/HR; Start 12/19/16 at 06:29 Ondansetron HCl (Zofran Inj) 4 mg Q6H PRN IV NAUSEA AND/OR VOMITING Last administered on 12/19/16 21:28; Admin Dose 4 MG; Start 12/19/16 at 06:30 Morphine Sulfate 4 mg 4 mg Q4H PRN IV SEVERE PAIN LEVEL 7-10 Last administered on 12/19/16 09:11; Admin Dose 4 MG; Start 12/19/16 at 06:30 Multivitamins/ Thiamine HCl/ Folic Acid/Sodium Chloride (Mvi Adult/ Vitamin B1/ Folic Acid/NS) 1,011.2 ml @ 125 mls/ hr DAILY@09 IVPB Last administered on 12/20 09:46; Admin Dose 125 MLS/HR; Start 12/19/16 at 09:00; Stop 12/22/16 at 09: 00 Lorazepam (Ativan) 1 mg Q3 PRN IV anxiety; Start 12/19/16 at 07:00 Lorazepam (Ativan) 2 mg Q1H PRN IV etoh withdrawal; Start 12/19/16 at 07:00 Pantoprazole (Protonix Iv) 40 mg DAILY@06 IV Last administered on 12/20/16 05: 22; Admin Dose 40 MG; Start 6/8/17 at 07:30 Morphine Sulfate (morphine) 2 mg Q3H PRN IV PAIN Last administered on 12/19/16t 21:28; Admin Dose 2 MG; Start 12/19/16 at 18:00 JOHNATHAN EDGAR Dec 20, 2016 16:12
[2016-12-20 19:29] VITALS: BP 120/67; RESP 18
[2016-12-20 20:12] VITALS: BP 114/66; PULSE 95
[2016-12-21] MEDS ORDERED: ZOLPIDEM 5 MG TAB PO PRN (00:30)
[2016-12-21] MEDS: DEXTROSE 5%-0.45% NACL 1,000 ML IV SCH ×2 (02:42→05:09)
[2016-12-21] MEDS: PANTOPRAZOLE 40 MG INJ IV SCH (05:57)
[2016-12-21 07:23] VITALS: BP 113/69; RESP 18
[2016-12-21] MEDS: MULTIVITAMINS 10 ML, THIAMINE 100 MG, FOLIC ACID 1 MG in SOD CHLORIDE 0.9% 1,000 ML IVPB SCH (08:56)
[2016-12-21] MEDS ORDERED: TRAM50TA2 PO (10:14)
--- NOTE | 2016-12-21 10:58 | PDOCDIS ---
Discharge Instructions DIAGNOSIS Discharge Diagnosis: 1. alcohol induced pancreatitis 2. alcohol abuse CONDITION Patient Condition: Stable HOME CARE INSTRUCTIONS: Special Diet: Clear Liquids FOLLOW UP/APPOINTMENTS Appointments 1. Follow up with your primary care provider in one week OTHER ORDERS: Other Orders: stop drinking alcohol JOHNATHAN EDGAR Dec 21, 2016 10:58
--- NOTE | 2016-12-24 15:03 | DS ---
Date/Time of Note Date/Time of Note DATE: 12/24/16 TIME: 14:55 Discharge Summary Admission/Discharge Info Admit Date/Time Dec 19, 2016 at 03:17 Discharge Date/Time Dec 21, 2016 at 15:00 Final Diagnosis 1. Acute pancreatitis (alcohol induced). 2. Transaminitis secondary to alcoholism. 3. Anemia. 4. Alcohol abuse Patient Condition: Stable Hospital Course This is a 36 year old male wit history of alcohol abuse, Autumn-Chapin tear, pancreatitis, GI bleed, methamphetamine use who came to [facility] [place] due to reports of abdominal pain with nonbilious, nonbloody emesis. Patient reported drinking heavily prior to admission. He was with alcohol induced pancreatitis . He did have transaminitis secondary to alcohol abuse as well as elevated lipase levels. He was initially NPO and placed on analgesics as well as IV hydration. Patient gradually did have his diet advanced once his abdominal pain subsided. He was again advised for alcohol cessation. During his course of stay he did improve. He was otherwise optimized medically. He had some anemia but it did remain stable. He was able to tolerate regular diet without pain. Plan of care was discussed with the patient and patient did verbalize his understanding. On the day of discharge, patient was in stable condition. Discussed plan of care with Dr. Soto Discharge process time: 40 minutes Home Meds Active Scripts Tramadol HCl (Tramadol HCl) 50 Mg Tablet, 50 MG PO Q6H Y for PAIN, #14 TAB Prov:JOHNATHAN EDGAR 12/21/16 Famotidine* (Pepcid*) 20 Mg Tablet, 20 MG PO BID for 10 Days, TAB Prov:KARLA GARCIA MD 12/18/16 Mag Hydrox/Al Hydrox/Simeth (Maalox Plus X-Strength Susp) 355 Ml Oral.susp, 2 TSP PO TID for PAIN, #24 Prov:DULCE CISSE MD 12/14/16 Ondansetron Hcl* (Zofran*) 4 Mg Tablet, 4 MG PO Q8H Y for NAUSEA AND/OR VOMITING , #15 TAB Prov:DULCE CISSE MD 12/14/16 Chlordiazepoxide* (Chlordiazepoxide*) 25 Mg Capsule, 25 MG PO Q8 Y for CONTROL WITHDRAWAL SYMPTOMS, #30 CAP Prov:PAUL COLLINS 11/20/16 Dicyclomine Hcl* (Bentyl*) 10 Mg Capsule, 10 MG PO QID for 3 Days, CAP Prov:STEVE MONSALVE 11/15/16 Ferrous Sulfate* (Ferrous Sulfate*) 325 Mg Tabec, 325 MG PO BID, #30 TAB Prov:AMIBECCA 11/14/16 Ranitidine Hcl* (Zantac*) 150 Mg Tablet, 150 MG PO BID Y for EPIGASTRIC PAIN, # 30 TAB Prov:AMIBECCA 11/14/16 Diphenoxylate Hcl-Atropine* (Lomotil*) 5 Ml Soln, 5 ML GTB Q6H Y for DIARRHEA, # 14 ML Prov:AMIBECCA 11/14/16 Ondansetron (Zofran Odt) 4 Mg Tab.rapdis, 4 MG PO Q6, #10 Prov:AMIBECCA 11/14/16 Pantoprazole* (Protonix*) 40 Mg Tablet.dr, 40 MG PO DAILY for 30 Days, TAB Prov:JOHNATHAN EDGAR 06/13/16 Reported Medications Ranitidine Hcl* (Zantac*) 75 Mg Tablet, 75 MG PO BID, TAB 12/19/16 Discontinued Scripts Ondansetron (Ondansetron Odt) 8 Mg Tab.rapdis, 8 MG PO Q6H Y for NAUSEA AND/OR VOMITING, #10 TAB Prov:KARLA GARCIA MD 12/18/16 Chlordiazepoxide* (Chlordiazepoxide*) 10 Mg Capsule, 10 MG PO BID for CONTROL WITHDRAWAL SYMPTOMS, #15 CAP Prov:DULCE CISSE MD 12/14/16 Loperamide Hcl* (Imodium*) 2 Mg Capsule, 2 MG PO .WITH EACH DIARRHEA Y for DIARRHEA for 3 Days, CAP MAX 16 mg/day Prov:STVEE MONSALVE 11/15/16 Famotidine* (Pepcid*) 20 Mg Tablet, 20 MG PO BID for 7 Days, TAB Prov:STEVE MONSALVE 11/15/16 Cephalexin* (Keflex*) 500 Mg Capsule, 500 MG PO TID for 5 Days, CAP Prov:AMIBECCADUSTY GEE 11/14/16 Follow-up Plan CONDITION Patient Condition: Stable HOME CARE INSTRUCTIONS: Special Diet: Clear Liquids FOLLOW UP/APPOINTMENTS Appointments 1. Follow up with your primary care provider in one week OTHER ORDERS: Other Orders: stop drinking alcohol Primary Care Provider Not On Staff Doctor JOHNATHAN EDGAR Dec 24, 2016 15:03
== END 2016-12-21 15:00 | disposition home or self-care (01) | DRG 440 ==
LOC: E/R 23:44 → MS2 12-19 03:17 → E/R 12-19 16:40
PROVIDERS: ADMIT Internal Medicine; ATTEND Internal Medicine
DX: K85.20 Alcohol induced acute pancreatitis without necrosis or infection (principal); K70.0 Alcoholic fatty liver; F10.20 Alcohol dependence, uncomplicated; D64.9 Anemia, unspecified; F15.90 Other stimulant use, unspecified, uncomplicated; Z87.19 Personal history of other diseases of the digestive system
CPT/HCPCS: 36415; 74176; 80053; 81001; 83540; 83690; 83735; 84100; 85025; 87040; 87081; 87086; 96365; 96366; 96375; 96376; C9113; J2270; J2405; J3411; J7030; J7042

== ENCOUNTER 2017-01-19 12:46 | Emergency (ER) | payer MEDICAID ==
[~2017-01-19] VITALS: Ht 167.6 cm; Wt 79.0 kg
[~2017-01-19 12:46] MED LIST changes: -CEPH-443 PO; -CHLO10CA6 PO; -FAMO-18 PO; +FAMO-96 PO; -LOPE2CAP PO; -ONDA8TAB14 PO; +RANI75TA13 PO; +TRAM50TA2 PO
[2017-01-19 12:50] VITALS: Ht 167.6 cm; Wt 79.0 kg
[2017-01-19] MEDS ORDERED: LIDOCAINE/MYLANTA 40 ML BTL PO STA (13:54)
[2017-01-19] MEDS ORDERED: FAMOTIDINE 20 MG INJ IV STA (13:54)
--- NOTE | 2017-01-19 14:43 | RADRPT ---
PROCEDURE: US Abdomen. CLINICAL INDICATION: abdominal pain TECHNIQUE: Multiple real-time images were acquired of the patient's right upper quadrant abdomen a nd retroperitoneum utilizing a high resolution transducer. COMPARISON: 12/19/2016 FINDINGS: The liver demonstrates increased echogenicity. The liver is enlarged in size and no focal solid les ions are seen. The liver measures 24.2 cm in length. The portal vein is patent with normal direction of flow. No intrahepatic biliary dilatation is seen. No gallstones are identified within the gallbladder. There is no pericholecystic fluid or gallbladd er wall thickening. The common bile duct measures 3.6 mm in maximal dimension. The pancreas was not seen due to overlying bowel gas. No free fluid is identified. The right kidney is normal in size, and demonstrate normal echogenicity and cortical thickness. The right kidney measures 12.4 cm in long dimension. There is no evidence of hydronephrosis. There are no kidney stones. RPTAT: AA IMPRESSION: Hepatomegaly with diffuse fatty infiltration of the liver. No evidence of gallstones. No evidence of hydronephrosis. .Marek Sommers MD, MD Date Time Electronically viewed and signed by .Marek Sommers MD, MD on 01/19/2017 14:43 .S/
[2017-01-19 14:46] LABS: ADD SCAN DIFF NO
[2017-01-19 14:50] LABS: BASOPHIL # 0.1 10^3/ul (0.0-0.1); EOSINOPHILS % 0.4 % (0.0-7.0); HEMATOCRIT 29.2 % (42.0-52.0); LYMPHOCYTES % 39.3 % (15.0-51.0); MEAN CORPUSCULAR HEMOGLOBIN 22.3 pg (29.0-33.0); MEAN CORPUSCULAR HGB CONC 30.8 g/dl (32.0-37.0); MEAN CORPUSCULAR VOLUME 72.5 fl (82.0-101.0); MEAN PLATELET VOLUME 10.2 fl (7.4-10.4); MONOCYTE # 0.5 10^3/ul (0.3-0.9); MONOCYTES % 10.2 % (0.0-11.0); NEUTROPHIL # 2.4 10^3/ul (1.6-7.5); NEUTROPHILS % 48.9 % (39.0-77.0); PLATELET COUNT 160 10^3/UL (140-415); RED BLOOD COUNT 4.03 10^6/ul (4.70-6.10); RED CELL DISTRIBUTION WIDTH 20.4 % (11.5-14.5)
[2017-01-19 15:18] LABS: ALBUMIN 4.6 g/dl (3.3-4.9); ALBUMIN/GLOBULIN RATIO 1.12; BILIRUBIN,INDIRECT 0.2 mg/dl (0-1.1); BILIRUBIN,TOTAL 0.2 mg/dl (0.2-1.3); CALCIUM 8.5 mg/dl (8.4-10.2); CREATININE 0.51 mg/dl (0.61-1.24); POTASSIUM 3.4 mmol/L (3.5-5.1); TOTAL PROTEIN 8.7 g/dl (6.1-8.1)
[2017-01-19] MEDS ORDERED: HYDR-906 PO (17:43)
[2017-01-19] MEDS ORDERED: OMEP40CA6 PO (17:43)
--- NOTE | 2017-01-19 17:48 | ERD ---
ER Documentation Chief Complaint Date/Time DATE: 01/19/17 TIME: 17:44 Chief Complaint NECK PAIN AND ABDOMINAL PAIN SINCE YESTERDAY HPI This 36-year-old male who is known to this ER is an alcohol abuser is coming many times for alcohol abuse and epigastric pain. The patient states that he is binging on alcohol for the past several days and has had some epigastric pain after eating that occurs immediately described as a burning sensation. He has no chest pain or shortness of breath. No fever. He has no pain in the back no vomiting no nausea. He says he has had this pain many times in the past. Is also complaining of some pain on the bilateral paraspinal cervical region this morning. He said he woke up at some soreness to his upper neck that is worse when he moves. No neurologic complaints as numbness or weakness and no headaches. ROS All systems reviewed and are negative except as per history of present illness. Medications Home Meds Active Scripts Omeprazole* (Omeprazole*) 40 Mg Capsule.dr, 40 MG PO DAILY, #21 CAP Prov:JANEEN ROLLINS DO 01/19/17 Hydrocodone/Acetaminophen ([place] 5-325 Tablet) 1 Each Tablet, 1 TAB PO Q6H Y for PAIN, #20 TAB Prov:JANEEN ROLLINS DO 01/19/17 Tramadol HCl (Tramadol HCl) 50 Mg Tablet, 50 MG PO Q6H Y for PAIN, #14 TAB Prov:JOHNATHAN EDGAR 12/21/16 Famotidine* (Pepcid*) 20 Mg Tablet, 20 MG PO BID for 10 Days, TAB Prov:KARLA GARCIA MD 12/18/16 Mag Hydrox/Al Hydrox/Simeth (Maalox Plus X-Strength Susp) 355 Ml Oral.susp, 2 TSP PO TID for PAIN, #24 Prov:DULCE CISSE MD 12/14/16 Ondansetron Hcl* (Zofran*) 4 Mg Tablet, 4 MG PO Q8H Y for NAUSEA AND/OR VOMITING , #15 TAB Prov:DULCE CISSE MD 12/14/16 Chlordiazepoxide* (Chlordiazepoxide*) 25 Mg Capsule, 25 MG PO Q8 Y for CONTROL WITHDRAWAL SYMPTOMS, #30 CAP Prov:PAUL COLLINS 11/20/16 Dicyclomine Hcl* (Bentyl*) 10 Mg Capsule, 10 MG PO QID for 3 Days, CAP Prov:STEVE MONSALVE Tejal 11/15/16 Ferrous Sulfate* (Ferrous Sulfate*) 325 Mg Tabec, 325 MG PO BID, #30 TAB Prov:BECCA MUELLER DO 11/14/16 Ranitidine Hcl* (Zantac*) 150 Mg Tablet, 150 MG PO BID Y for EPIGASTRIC PAIN, # 30 TAB Prov:BECCA MUELLER DO 11/14/16 Diphenoxylate Hcl-Atropine* (Lomotil*) 5 Ml Soln, 5 ML GTB Q6H Y for DIARRHEA, # 14 ML Prov:BECCA MUELLER DO 11/14/16 Ondansetron (Zofran Odt) 4 Mg Tab.rapdis, 4 MG PO Q6, #10 Prov:BECCA MUELLER DO 11/14/16 Pantoprazole* (Protonix*) 40 Mg Tablet.dr, 40 MG PO DAILY for 30 Days, TAB Prov:JOHNATHAN EDGAR 06/13/16 Reported Medications Ranitidine Hcl* (Zantac*) 75 Mg Tablet, 75 MG PO BID, TAB 12/19/16 Allergies Allergies: Coded Allergies: No Known Allergy (Unverified , 11/14/16) PMhx/Soc History of Surgery: No Anesthesia Reaction: No Hx Neurological Disorder: No Hx Respiratory Disorders: No Hx Cardiac Disorders: No Hx Psychiatric Problems: No Hx Miscellaneous Medical Probl: No Hx Alcohol Use: Yes Hx Substance Use: Yes Hx Tobacco Use: No Smoking Status: Never smoker FmHx Family History: No coronary disease Physical Exam Vitals Vital Signs Date Time Temp Pulse Resp B/P Pulse Ox O2 Delivery O2 Flow Rate FiO2 01/19/17 12:50 97.7 102 18 144/90 96 Physical Exam Const: Well-developed, well-nourished Head: Atraumatic, normocephalic Eyes: Normal Conjunctiva, PERRLA, EOMI, normal sclera, no nystagmus ENT: Normal External Ears, Nose and Mouth, moist mucus membranes. Neck: Full range of motion. No meningismus, no lymphadenopathy there is mild bilateral upper cervical paraspinal tenderness no midline pain is in with spasm. Resp: Clear to auscultation bilaterally, no wheezing, rhonchi, rales Cardio: Regular rate and rhythm, no murmurs, S1 S2 present Abd: Soft, mild epigastric tenderness, non distended. Normal bowel sounds, no guarding or rebound, no pulsitile abdominal masses or bruits Skin: No petechiae or rashes, no ecchymosis , no maculopapular rash Back: No midline or flank tenderness Ext: No cyanosis, or edema, FROM x 4, normal inspection, neurovascularly intact x 4 Neur: Awake and alert, STR 5/5 x 4, sensation intact x 4, no focal findings, cerebellum intact Psych: Normal Mood and Affect Result Diagram: 01/19/17 1400 01/19/17 1400 Results 24 hrs Laboratory Tests Test 01/19/17 14:00 White Blood Count 5.010^3/ul Red Blood Count 4.0310^6/ul Hemoglobin 9.0g/dl Hematocrit 29.2% Mean Corpuscular Volume 72.5fl Mean Corpuscular Hemoglobin 22.3pg Mean Corpuscular Hemoglobin Concent 30.8g/dl Red Cell Distribution Width 20.4% Platelet Count 75324^3/UL Mean Platelet Volume 10.2fl Neutrophils % 48.9% Lymphocytes % 39.3% Monocytes % 10.2% Eosinophils % 0.4% Basophils % 1.0% Nucleated Red Blood Cells % 0.0/100WBC Neutrophils # 2.410^3/ul Lymphocytes # 2.010^3/ul Monocytes # 0.510^3/ul Eosinophils # 0.010^3/ul Basophils # 0.110^3/ul Nucleated Red Blood Cells # 0.010^3/ul Sodium Level 136mmol/L Potassium Level 3.4mmol/L Chloride Level 94mmol/L Carbon Dioxide Level 24mmol/L Anion Gap 21 Blood Urea Nitrogen 4mg/dl Creatinine 0.51mg/dl Glucose Level 112mg/dl Calcium Level 8.5mg/dl Total Bilirubin 0.2mg/dl Direct Bilirubin 0.00mg/dl Indirect Bilirubin 0.2mg/dl Aspartate Amino Transf (AST/SGOT) 89IU/L Alanine Aminotransferase (ALT/SGPT) 49IU/L Alkaline Phosphatase 79IU/L Total Protein 8.7g/dl Albumin 4.6g/dl Globulin 4.10g/dl Albumin/Globulin Ratio 1.12 Lipase 145U/L Current Medications Medications (Trade) Dose Ordered Sig/[place]e Route PRN Reason Start Time Stop Time Status Last Admin Dose Admin Famotidine (Pepcid Iv) 20 mg ONCE STAT IV 01/19/17 13:54 01/19/17 13:57 DC 01/19/17 14:42 Miscellaneous Medication (Gi Cocktail (2)) 40 ml ONCE STAT PO 01/19/17 13:54 01/19/17 13:57 DC 01/19/17 14:40 Procedures/MDM PROCEDURE: US Abdomen. CLINICAL INDICATION: abdominal pain TECHNIQUE: Multiple real-time images were acquired of the patient's right upper quadrant abdomen and retroperitoneum utilizing a high resolution transducer. COMPARISON: 12/19/2016 FINDINGS: The liver demonstrates increased echogenicity. The liver is enlarged in size and no focal solid lesions are seen. The liver measures 24.2 cm in length. The portal vein is patent with normal direction of flow. No intrahepatic biliary dilatation is seen. No gallstones are identified within the gallbladder. There is no pericholecystic fluid or gallbladder wall thickening. The common bile duct measures 3.6 mm in maximal dimension. The pancreas was not seen due to overlying bowel gas. No free fluid is identified. The right kidney is normal in size, and demonstrate normal echogenicity and cortical thickness. The right kidney measures 12.4 cm in long dimension. There is no evidence of hydronephrosis. There are no kidney stones. RPTAT: AA IMPRESSION: Hepatomegaly with diffuse fatty infiltration of the liver. No evidence of gallstones. No evidence of hydronephrosis. .Marek Sommers MD, Date Time Electronically viewed and signed by .Marek Sommers MD, on 01/19/2017 14: 43 .S/ CC: JANEEN ROLLINS DO Patient likely has alcoholic gastritis. Will treat with omeprazole and pain medication neck pain is likely musculoskeletal in nature he may have slept from being intoxicated last night and was in a odd position Departure Diagnosis: Primary Impression: Gastritis Gastritis type: alcoholic Chronicity: chronic Gastritis bleeding: presence of bleeding unspecified Qualified Code: K29.20 - Chronic alcoholic gastritis, presence of bleeding unspecified Additional Impression: Alcohol abuse Condition: Stable Patient Instructions: Gastritis (Adult), Alcohol Abuse JANEEN ROLLINS DO Jan 19, 2017 17:47
[2017-01-19 18:21] VITALS: BP 131/82; PULSE 88; RESP 18
== END 2017-01-19 18:22 | disposition home or self-care (01) ==
LOC: FTE 12:46
DX: K29.20 Alcoholic gastritis without bleeding (principal); F10.10 Alcohol abuse, uncomplicated
CPT/HCPCS: 36415; 76705; 80053; 83690; 85025; 96374; Z7502; Z7610

== ENCOUNTER 2017-02-19 09:53 | Emergency (ER) | payer MEDICAID ==
[~2017-02-19] VITALS: Ht 160 cm; Wt 90.0 kg
[~2017-02-19 09:53] MED LIST changes: +HYDR-906 PO; +OMEP40CA6 PO
[2017-02-19 10:00] VITALS: Ht 160 cm; Wt 90.0 kg
[2017-02-19] MEDS ORDERED: LORAZEPAM 1 MG TAB PO ONE (10:30)
--- NOTE | 2017-02-19 11:25 | ERD ---
ER Documentation Chief Complaint Date/Time DATE: 02/19/17 TIME: 11:25 Chief Complaint been drinking x 1 mos, feels dom HPI Patient is a 36-year-old male with alcohol abuse who presents with shakiness. He has bilateral hand shaking. The symptoms started this morning. He said that he had 3 beers this morning. He has had previous episodes in the past this year. Upon review of old medical records the patient has had multiple visits to the ER since 2011. Review of the emergency department information exchange system shows visits to 2 separate emergency departments. ROS All systems reviewed and are negative except as per history of present illness. Medications Home Meds Discontinued Reported Medications Ranitidine Hcl* (Zantac*) 75 Mg Tablet, 75 MG PO BID, TAB 12/19/16 Discontinued Scripts Omeprazole* (Omeprazole*) 40 Mg Capsule.dr, 40 MG PO DAILY, #21 CAP Prov:JANEEN ROLLINS DO 01/19/17 Hydrocodone/Acetaminophen ([place] 5-325 Tablet) 1 Each Tablet, 1 TAB PO Q6H Y for PAIN, #20 TAB Prov:JANEEN ROLLINS DO 01/19/17 Tramadol HCl (Tramadol HCl) 50 Mg Tablet, 50 MG PO Q6H Y for PAIN, #14 TAB Prov:JOHNATHAN EDGAR 12/21/16 Famotidine* (Pepcid*) 20 Mg Tablet, 20 MG PO BID for 10 Days, TAB Prov:KARLA GARCIA MD 12/18/16 Mag Hydrox/Al Hydrox/Simeth (Maalox Plus X-Strength Susp) 355 Ml Oral.susp, 2 TSP PO TID for PAIN, #24 Prov:DULCE CISSE MD 12/14/16 Ondansetron Hcl* (Zofran*) 4 Mg Tablet, 4 MG PO Q8H Y for NAUSEA AND/OR VOMITING , #15 TAB Prov:DULCE CISSE MD 12/14/16 Chlordiazepoxide* (Chlordiazepoxide*) 25 Mg Capsule, 25 MG PO Q8 Y for CONTROL WITHDRAWAL SYMPTOMS, #30 CAP Prov:PAUL COLLINS 11/20/16 Dicyclomine Hcl* (Bentyl*) 10 Mg Capsule, 10 MG PO QID for 3 Days, CAP Prov:STEVE MONSALVE 11/15/16 Ferrous Sulfate* (Ferrous Sulfate*) 325 Mg Tabec, 325 MG PO BID, #30 TAB Prov:BECCA MUELLER DO 11/14/16 Ranitidine Hcl* (Zantac*) 150 Mg Tablet, 150 MG PO BID Y for EPIGASTRIC PAIN, # 30 TAB Prov:BECCA MUELLER DO 11/14/16 Diphenoxylate Hcl-Atropine* (Lomotil*) 5 Ml Soln, 5 ML GTB Q6H Y for DIARRHEA, # 14 ML Prov:BECCA MUELLER DO 11/14/16 Ondansetron (Zofran Odt) 4 Mg Tab.rapdis, 4 MG PO Q6, #10 Prov:BECCA MUELLER DO 11/14/16 Pantoprazole* (Protonix*) 40 Mg Tablet.dr, 40 MG PO DAILY for 30 Days, TAB Prov:HERVEJOHNATHAN 06/13/16 Allergies Allergies: Coded Allergies: No Known Allergy (Unverified , 02/19/17) PMhx/Soc Medical and Surgical Hx: pt denies Surgical Hx History of Surgery: No Anesthesia Reaction: No Hx Neurological Disorder: No Hx Respiratory Disorders: No Hx Cardiac Disorders: No Hx Psychiatric Problems: No Hx Miscellaneous Medical Probl: Yes (pancreatitis) Hx Alcohol Use: Yes (daily alcohol use) Hx Substance Use: Yes Hx Tobacco Use: No Smoking Status: Never smoker FmHx Family History: No diabetes Physical Exam Vitals Vital Signs Date Time Temp Pulse Resp B/P Pulse Ox O2 Delivery O2 Flow Rate FiO2 02/19/17 11:34 92 27 128/85 97 Room Air 02/19/17 10:28 100 27 138/90 95 Room Air 02/19/17 10:00 98.1 90 18 136/87 99 Physical Exam Const: Shakiness Head: Atraumatic Eyes: Normal Conjunctiva ENT: Normal External Ears, Nose and Mouth. Neck: Full range of motion..~ No meningismus. Resp: Clear to auscultation bilaterally Cardio: Regular rate and rhythm, no murmurs Abd: Soft, non tender, non distended. Normal bowel sounds Skin: No petechiae or rashes Back: No midline or flank tenderness Ext: No cyanosis, or edema Neur: Awake and alert, bilateral hand tremors Psych: Normal Mood and Affect Results 24 hrs Laboratory Tests Test 02/19/17 10:44 Bedside Glucose 122mg/dL Current Medications Medications (Trade) Dose Ordered Sig/Mirlande Route PRN Reason Start Time Stop Time Status Last Admin Dose Admin Lorazepam (Ativan) 1 mg ONCE ONCE PO 02/19/17 10:30 02/19/17 10:31 DC 02/19/17 10:36 Procedures/MDM EKG read by me: Rate/Rhythm: Regular rate and rhythm at a rate of 99 Intervals: Normal Impression: No evidence of ischemia or arrhythmia Accu-Chek is normal. Patient is a 36-year-old male with alcohol abuse who presents with tremulousness. I believe he has early alcohol withdrawal. At this point he is awake alert and oriented 3 and I doubt significant delirium tremens. The patient was given Ativan by mouth. EKG and Accu-Chek were basically normal. The patient will be discharged and can return for any worsening symptoms. The patient was provided with a copy of the local substance abuse facilities I did tell him that he would benefit from outpatient alcohol detox. Departure Diagnosis: Primary Impression: Episode of shaking Additional Impression: Alcohol withdrawal syndrome Complication of substance-induced condition: uncomplicated Qualified Code: F10.230 - Alcohol withdrawal syndrome, uncomplicated Condition: Fair Patient Instructions: Alcohol Withdrawal Referrals: Your doctor Additional Instructions: Llame al doctor MAANA y alex ml NAIMA PARA DENTRO DE 1-2 GERMAN.Dgale a la secretaria que nosotros le instruimos hacer esta naima.Avise o llame si padilla condicin se empeora antes de la naima. Regresa aqui si peor o no mejor. YIFAN COX MD Feb 19, 2017 11:25
[2017-02-19 11:34] VITALS: BP 128/85; PULSE 92; RESP 27
== END 2017-02-19 11:37 | disposition home or self-care (01) ==
LOC: E/R 09:53
DX: R25.1 Tremor, unspecified (principal); F10.230 Alcohol dependence with withdrawal, uncomplicated
CPT/HCPCS: 82962; 93005; Z7610

== ENCOUNTER 2017-02-22 16:51 | Emergency (ER) | payer MEDICAID ==
[~2017-02-22] VITALS: Ht 170.2 cm; Wt 96.5 kg
[2017-02-22 16:53] VITALS: Ht 170.2 cm; Wt 96.5 kg
[2017-02-22] MEDS ORDERED: ONDANSETRON (ODT) 4 MG TAB ODT STA (17:50)
[2017-02-22] MEDS ORDERED: DIPHENHYDRAMINE 50 MG INJ IM ONE (18:00)
[2017-02-22] MEDS ORDERED: predniSONE 20 MG TAB PO ONE (18:00)
[2017-02-22] MEDS ORDERED: PRED20TA PO (18:12)
[2017-02-22] MEDS ORDERED: ONDA8TAB14 PO (18:12)
[2017-02-22] MEDS ORDERED: BEN25 PO (18:12)
--- NOTE | 2017-02-22 18:14 | ERD ---
ER Documentation Chief Complaint Date/Time DATE: 02/22/17 TIME: 18:12 Chief Complaint rash to abdomen and arms today HPI 1-year-old male presents with a rash since this morning. Is primarily on his arms and abdomen. It is itchy. He did feel some nausea and vomiting as well. Vomit is nonbilious nonbloody. Is no history of fevers, cough, shortness breath , sore throat. Patient denies any new medications or new foods. ROS All systems reviewed and are negative except as per history of present illness. Medications Home Meds Active Scripts Diphenhydramine Hcl* (Benadryl*) 25 Mg Cap, 25 MG PO Q6, #15 CAP Prov:KARLA GARCIA MD 02/22/17 Prednisone* (Prednisone*) 20 Mg Tab, 40 MG PO DAILY for 4 Days, TAB Prov:KARLA GARCIA MD 02/22/17 Ondansetron (Ondansetron Odt) 8 Mg Tab.rapdis, 8 MG PO Q6H Y for NAUSEA AND/OR VOMITING, #8 TAB Prov:KARLA GARCIA MD 02/22/17 Discontinued Reported Medications Ranitidine Hcl* (Zantac*) 75 Mg Tablet, 75 MG PO BID, TAB 12/19/16 Discontinued Scripts Omeprazole* (Omeprazole*) 40 Mg Capsule.dr, 40 MG PO DAILY, #21 CAP Prov:JANEEN ROLLINS DO 01/19/17 Hydrocodone/Acetaminophen ([place] 5-325 Tablet) 1 Each Tablet, 1 TAB PO Q6H Y for PAIN, #20 TAB Prov:JANEEN ROLLINS DO 01/19/17 Tramadol HCl (Tramadol HCl) 50 Mg Tablet, 50 MG PO Q6H Y for PAIN, #14 TAB Prov:JOHNATHAN EDGAR 12/21/16 Famotidine* (Pepcid*) 20 Mg Tablet, 20 MG PO BID for 10 Days, TAB Prov:KARLA GARCIA MD 12/18/16 Mag Hydrox/Al Hydrox/Simeth (Maalox Plus X-Strength Susp) 355 Ml Oral.susp, 2 TSP PO TID for PAIN, #24 Prov:DULCE CISSE MD 12/14/16 Ondansetron Hcl* (Zofran*) 4 Mg Tablet, 4 MG PO Q8H Y for NAUSEA AND/OR VOMITING , #15 TAB Prov:DULCE CISSE MD 12/14/16 Chlordiazepoxide* (Chlordiazepoxide*) 25 Mg Capsule, 25 MG PO Q8 Y for CONTROL WITHDRAWAL SYMPTOMS, #30 CAP Prov:FANNYPAUL FORDE 11/20/16 Dicyclomine Hcl* (Bentyl*) 10 Mg Capsule, 10 MG PO QID for 3 Days, CAP Prov:STEVE MONSALVE 11/15/16 Ferrous Sulfate* (Ferrous Sulfate*) 325 Mg Tabec, 325 MG PO BID, #30 TAB Prov:BECCA MUELLER DO 11/14/16 Ranitidine Hcl* (Zantac*) 150 Mg Tablet, 150 MG PO BID Y for EPIGASTRIC PAIN, # 30 TAB Prov:BECCA MUELLER DO 11/14/16 Diphenoxylate Hcl-Atropine* (Lomotil*) 5 Ml Soln, 5 ML GTB Q6H Y for DIARRHEA, # 14 ML Prov:BECCA MUELLER DO 11/14/16 Ondansetron (Zofran Odt) 4 Mg Tab.rapdis, 4 MG PO Q6, #10 Prov:BECCA MUELLER DO 11/14/16 Pantoprazole* (Protonix*) 40 Mg Tablet.dr, 40 MG PO DAILY for 30 Days, TAB Prov:JOHNATHAN EDGAR 06/13/16 Allergies Allergies: Coded Allergies: No Known Allergy (Unverified , 02/19/17) PMhx/Soc History of Surgery: No Anesthesia Reaction: No Hx Neurological Disorder: No Hx Respiratory Disorders: No Hx Cardiac Disorders: No Hx Psychiatric Problems: No Hx Miscellaneous Medical Probl: Yes (pancreatitis) Hx Alcohol Use: Yes (daily alcohol use) Hx Substance Use: Yes Hx Tobacco Use: No Smoking Status: Never smoker Physical Exam Vitals Vital Signs Date Time Temp Pulse Resp B/P Pulse Ox O2 Delivery O2 Flow Rate FiO2 02/22/17 16:53 98.9 108 18 140/83 97 Physical Exam Const: [], [id number]. Head: Atraumatic Eyes: Normal Conjunctiva ENT: Normal External Ears, Nose and Mouth. Neck: Full range of motion..~ No meningismus. Resp: Clear to auscultation bilaterally Cardio: Regular rate and rhythm, no murmurs Abd: Soft, non tender, non distended. Normal bowel sounds Skin: No petechiae or purpura. There are scattered isolated macular papular rash on chest and abdomen and extremities. There is no warmth, induration, streaking or vesicles Back: No midline or flank tenderness Ext: No cyanosis, or edema Neur: Awake and alert Psych: Normal Mood and Affect Results 24 hrs Current Medications Medications (Trade) Dose Ordered Sig/Mirlande Route PRN Reason Start Time Stop Time Status Last Admin Dose Admin Diphenhydramine HCl (Benadryl) 25 mg ONCE ONCE IM 02/22/17 18:00 02/22/17 18:01 DC 02/22/17 18:03 Prednisone (Prednisone) 40 mg ONCE ONCE PO 02/22/17 18:00 02/22/17 18:01 DC 02/22/17 18:02 Ondansetron HCl (Zofran Odt) 8 mg ONCE STAT ODT 02/22/17 17:50 02/22/17 17:51 DC 02/22/17 18:03 Procedures/MDM Patient presents with a nonspecific dermatitis. May be viral exanthem or unspecified allergic reaction. Is no evidence of anaphylaxis, cellulitis, life- threatening rashes, purpura. We treated with short course of Zofran for nausea , Benadryl and prednisone and observation at home. The patient was stable with no new complaints during the ER course. Clinically, there is no current evidence to suggest meningitis, sepsis, acute abdomen, pneumonia, acute coronary syndrome, pulmonary embolism, or any other emergent condition appearing to require further evaluation or hospitalization. The patient should certainly return for any new or worsening symptoms per the aftercare instructions. They should otherwise follow-up with her primary care doctor for reevaluation this week. Disclaimer: Inadvertent spelling and grammatical errors are likely due to EHR/ dictation software use and do not reflect on the overall quality of patient care. Also, please note that the electronic time recorded on this note does not necessarily reflect the actual time of the patient encounter. Departure Diagnosis: Primary Impression: Rash Condition: Stable Patient Instructions: Dermatitis, Non-Specific Additional Instructions: Cheque otro vez con padilla doctor primario en el proximo de la cruz or regresa para mas o nueva simptomas. KARLA GARCIA MD Feb 22, 2017 18:14
[2017-02-22 18:27] VITALS: BP 128/78; PULSE 95; RESP 18; TEMP 98.6
== END 2017-02-22 18:27 | disposition home or self-care (01) ==
LOC: FTE 16:51
DX: R21 Rash and other nonspecific skin eruption (principal); R11.10 Vomiting, unspecified
CPT/HCPCS: 96372; J1200; J7512; Z7502; Z7610

== ENCOUNTER 2017-02-25 17:43 | Emergency (ER) | payer MEDICAID ==
[~2017-02-25] VITALS: Ht 177.8 cm; Wt 86.0 kg
[~2017-02-25 17:43] MED LIST changes: +BEN25 PO; -CHLO25CA9 PO; -DICY10CA60 PO; -FAMO-96 PO; -FER325 PO; -HYDR-906 PO; -MAG355OR15 PO; -OMEP40CA6 PO; -ONDA4TAB11 PO; -ONDA4TAB8 PO; +ONDA8TAB14 PO; -PANT40TA3 PO; +PRED20TA PO; -RANI150T9 PO; -RANI75TA13 PO; -TRAM50TA2 PO; -UDLOM GTB
[2017-02-25 17:49] VITALS: Ht 177.8 cm; Wt 86.0 kg
[2017-02-25] MEDS ORDERED: SOD CHLORIDE 0.9% 1,000 ML IV STA (18:13)
[2017-02-25] MEDS ORDERED: FAMOTIDINE 20 MG INJ IV STA (18:13)
[2017-02-25] MEDS ORDERED: LIDOCAINE/MYLANTA 40 ML BTL PO STA (18:13)
[2017-02-25] MEDS ORDERED: ONDANSETRON 4 MG INJ IV STA (18:13)
[2017-02-25 19:07] LABS: ADD UMIC YES; HEMATOCRIT 35.8 % (42.0-52.0); HEMOGLOBIN 11.4 g/dl (14.0-18.0); MEAN CORPUSCULAR HEMOGLOBIN 23.1 pg (29.0-33.0); MEAN CORPUSCULAR HGB CONC 31.8 g/dl (32.0-37.0); MEAN CORPUSCULAR VOLUME 72.5 fl (82.0-101.0); MEAN PLATELET VOLUME 10.8 fl (7.4-10.4); PLATELET COUNT 199 10^3/UL (140-415); POSITIVE DIFF @See below; RED BLOOD COUNT 4.94 10^6/ul (4.70-6.10); RED CELL DISTRIBUTION WIDTH 19.8 % (11.5-14.5); UR ASCORBIC ACID NEGATIVE (NEGATIVE); UR BACTERIA FEW /HPF (NONE SEEN); UR BILIRUBIN (Dip) NEGATIVE (NEGATIVE); UR BLOOD (Dip) NEGATIVE (NEGATIVE); UR CLARITY CLEAR (CLEAR); UR COLOR YELLOW (YELLOW); UR GLUCOSE (Dip) NEGATIVE (NEGATIVE); UR KETONES (Dip) NEGATIVE (NEGATIVE); UR LEUKOCYTE ESTERASE (Dip) 2+ Leu/ul (NEGATIVE); UR NITRITE (Dip) NEGATIVE (NEGATIVE); UR RBC 0 /HPF (0-5); UR SPECIFIC GRAVITY (Dip) 1.003 (1.003-1.030); UR TOTAL PROTEIN (Dip) NEGATIVE (NEGATIVE); UR UROBILINOGEN (Dip) NEGATIVE (NEGATIVE); WHITE BLOOD COUNT 6.7 10^3/ul (4.8-10.8)
[2017-02-25 19:18] LABS: ALBUMIN 4.3 g/dl (3.3-4.9); ALBUMIN/GLOBULIN RATIO 0.87; BILIRUBIN,INDIRECT 0.3 mg/dl (0-1.1); BILIRUBIN,TOTAL 0.3 mg/dl (0.2-1.3); CALCIUM 8.5 mg/dl (8.4-10.2); CREATININE 0.63 mg/dl (0.61-1.24); POTASSIUM 3.4 mmol/L (3.5-5.1); TOTAL PROTEIN 9.2 g/dl (6.1-8.1)
[2017-02-25 20:08] LABS: ANISOCYTOSIS 2+ (0-0); BASOPHILS % (M) 2 % (0-2); GIANT THROMBO% (M) 1 % (0-0); HYPOCHROMASIA 2+ (0-0); MICROCYTOSIS 2+ (0-0); MONOCYTES % (M) 7 % (0-11)
--- NOTE | 2017-02-25 20:58 | RADRPT ---
PROCEDURE: US Abdomen Limited . CLINICAL INDICATION: Abdominal pain TECHNIQUE: Multiple real-time images were acquired of the patient's right upper quadrant abdomen u tilizing a high resolution transducer. COMPARISON: January 19, 2017 FINDINGS: The liver measures 23.9 cm and demonstrates a coarsened echogenicity. The gallbladder is filled with a moderate amount of bile. No shadowing echogenic stones or masses are seen in the gallbladder. T he gallbladder wall is not thickened at 0.9 mm. No pericholecystic fluid is noted. The common bile d uct measures 4.0 mm in diameter. The pancreas is not well visualized. Antegrade flow is seen in the portal vein. Right kidney measures 12.8 cm. Right kidney demonstrates a normal echogenicity. No hydronephrosis, masses or stones are noted. IMPRESSION: Diffuse fatty infiltration of an enlarged liver. Pancreas not well visualized. If characterization of this structure is needed repeat exam or CT/MRI is recommended. RPTAT: AA .Antonio Kay MD, MD Date Time Electronically viewed and signed by .Antonio Kay MD, MD on 02/25/2017 20:58 .P/
[2017-02-25] MEDS ORDERED: ONDA4TAB14 PO (21:58)
[2017-02-25] MEDS ORDERED: FAMO-96 PO (21:58)
[2017-02-25 22:03] VITALS: BP 131/78; PULSE 97; RESP 18
--- NOTE | 2017-02-25 22:08 | ERD ---
ER Documentation Chief Complaint Date/Time DATE: 02/25/17 TIME: 22:00 Chief Complaint pt is bib self with c/o abd, n/v shaking, stopped drinking at 3 am today HPI Patient is a 36-year-old male with past medical history of alcoholism who presents to the emergency department for concerns of epigastric pain, nausea, vomiting and shaking. Patient states that he was drinking last night. Patient states he stopped drinking at 3 AM. Patient reports drinking 4-5 beers last night. Patient denies any fevers, chills, chest pain, shortness of breath, left upper extremity pain or loss consciousness. Patient denies any falls or head injuries. Of note, patient has been seen here in the emergency department for the same concerns numerous times over the last few months. ROS All systems reviewed and are negative except as per history of present illness. Medications Home Meds Active Scripts Famotidine* (Pepcid*) 20 Mg Tablet, 20 MG PO BID for 30 Days, TAB Prov:PATRICIA LEDESMA PA-C 02/25/17 Ondansetron (Ondansetron Odt) 4 Mg Tab.rapdis, 4 MG PO Q6H Y for NAUSEA AND/OR VOMITING, #10 TAB Prov:PATRICIA LEDESMA PA-C 02/25/17 Diphenhydramine Hcl* (Benadryl*) 25 Mg Cap, 25 MG PO Q6, #15 CAP Prov:KARLA GARCIA MD 02/22/17 Prednisone* (Prednisone*) 20 Mg Tab, 40 MG PO DAILY for 4 Days, TAB Prov:KARLA GARCIA MD 02/22/17 Ondansetron (Ondansetron Odt) 8 Mg Tab.rapdis, 8 MG PO Q6H Y for NAUSEA AND/OR VOMITING, #8 TAB Prov:KARLA GARCIA MD 02/22/17 Allergies Allergies: Coded Allergies: No Known Allergy (Unverified , 02/19/17) PMhx/Soc History of Surgery: No Anesthesia Reaction: No Hx Neurological Disorder: No Hx Respiratory Disorders: No Hx Cardiac Disorders: No Hx Psychiatric Problems: No Hx Miscellaneous Medical Probl: Yes (pancreatitis) Hx Alcohol Use: Yes (daily alcohol use) Hx Substance Use: Yes Hx Tobacco Use: No Physical Exam Vitals Vital Signs Date Time Temp Pulse Resp B/P Pulse Ox O2 Delivery O2 Flow Rate FiO2 02/25/17 22:03 97 18 131/78 98 Room Air 02/25/17 17:49 97.3 112 20 137/89 99 Physical Exam GENERAL: Well-developed, well-nourished male. Appears in no acute distress. HEAD: Normocephalic, atraumatic. EYES: Pupils are equally reactive bilaterally. EOMs grossly intact. No conjunctival erythema. ENT: Moist mucous membranes. No uvula deviation. No kissing tonsils. NECK: Supple. No meningismus. Normal range of motion of the neck. LUNG: Clear to auscultation bilaterally. No rhonchi, wheezing, rales or coarse breath sounds. HEART: Regular rate and rhythm. No murmurs, rubs or gallops. ABDOMEN: Soft. Tender to palpation epigastric region. Nondistended. Positive bowel sounds in all four quadrants. No rebound tenderness, no guarding. (-) McBurney's point tenderness. No CVA tenderness. EXTREMITIES: Equal pulses bilaterally. No peripheral clubbing, cyanosis or edema. No unilateral leg swelling. NEUROLOGIC: Alert and oriented. Moving all four extremities without any difficulty. Normal speech. Steady gait. SKIN: Normal color. Warm and dry. No rashes or lesions. PSYCH: No delirium tremens Result Diagram: 02/25/17183902/25/171839 Results 24 hrs Laboratory Tests Test 02/25/17 18:40 White Blood Count 6.710^3/ul Red Blood Count 4.9410^6/ul Hemoglobin 11.4g/dl Hematocrit 35.8% Mean Corpuscular Volume 72.5fl Mean Corpuscular Hemoglobin 23.1pg Mean Corpuscular Hemoglobin Concent 31.8g/dl Red Cell Distribution Width 19.8% Platelet Count 75656^3/UL Mean Platelet Volume 10.8fl Neutrophils % % Segmented Neutrophils % (Manual) 66.0% Lymphocytes % % Lymphocytes % (Manual) 25% Monocytes % % Monocytes % (Manual) 7% Eosinophils % % Basophils % % Basophils % (Manual) 2% Nucleated Red Blood Cells % 0.0/100WBC Neutrophils # (Manual) 10^3/ul Absolute Lymphocytes (Manual) 1.610^3/ul Lymphocytes # 10^3/ul Monocytes # 10^3/ul Absolute Monocytes (Manual) 0.410^3/ul Eosinophils # 10^3/ul Basophils # 10^3/ul Basophils # (Manual) 0.110^3/ul Nucleated Red Blood Cells # 10^3/ul Thrombocytosis 1% Platelet Morphology Comment @See below Hypochromasia 2+ Anisocytosis 2+ Microcytosis 2+ Rouleau 2+ Urine Color YELLOW Urine Clarity CLEAR Urine pH 6.0 Urine Specific [place] 1.003 Urine Ketones NEGATIVEmg/dL Urine Nitrite NEGATIVEmg/dL Urine Bilirubin NEGATIVEmg/dL Urine Urobilinogen NEGATIVEmg/dL Urine Leukocyte Esterase 2+Dax/ul Urine Microscopic RBC 0/HPF Urine Microscopic WBC 40/HPF Urine Bacteria FEW/HPF Urine Hemoglobin NEGATIVEmg/dL Urine Glucose NEGATIVEmg/dL Urine Total Protein NEGATIVEmg/dl Sodium Level 131mmol/L Potassium Level 3.4mmol/L Chloride Level 91mmol/L Carbon Dioxide Level 25mmol/L Anion Gap 18 Blood Urea Nitrogen 5mg/dl Creatinine 0.63mg/dl Glucose Level 108mg/dl Calcium Level 8.5mg/dl Total Bilirubin 0.3mg/dl Direct Bilirubin 0.00mg/dl Indirect Bilirubin 0.3mg/dl Aspartate Amino Transf (AST/SGOT) 439IU/L Alanine Aminotransferase (ALT/SGPT) 100IU/L Alkaline Phosphatase 171IU/L Total Protein 9.2g/dl Albumin 4.3g/dl Globulin 4.90g/dl Albumin/Globulin Ratio 0.87 Lipase 450U/L Current Medications Medications (Trade) Dose Ordered Sig/Mirlande Route PRN Reason Start Time Stop Time Status Last Admin Dose Admin Sodium Chloride (NS) 1,000 ml @ 1,000 mls/hr Q1H STAT IV 02/25/17 18:13 02/25/17 19:12 DC 02/25/17 18:40 Ondansetron HCl (Zofran Inj) 4 mg ONCE STAT IV 02/25/17 18:13 02/25/17 18:15 DC 02/25/17 18:40 Famotidine (Pepcid Iv) 20 mg ONCE STAT IV 02/25/17 18:13 02/25/17 18:15 DC 02/25/17 18:40 Miscellaneous Medication (Gi Cocktail (2)) 40 ml ONCE STAT PO 02/25/17 18:13 02/25/17 18:15 DC 02/25/17 18:40 Procedures/MDM ED COURSE: The patient was stable throughout ED course. I kept the patient and/or family informed of laboratory and diagnostic imaging results throughout the ED course. DIAGNOSTIC IMAGING: Read by radiologist. DIAGNOSTIC IMAGING REPORT Patient: HELEN MAGDALENO : 1980 Age: 36 Sex: M MR #: [id number] DOS: 02/25/17 0000 Ordering MD: PATRICIA LEDESMA PA-C Location: [facility] Room/Bed: PROCEDURE: US Abdomen Limited . CLINICAL INDICATION: Abdominal pain TECHNIQUE: Multiple real-time images were acquired of the patient's right upper quadrant abdomen utilizing a high resolution transducer. COMPARISON: January 19, 2017 FINDINGS: The liver measures 23.9 cm and demonstrates a coarsened echogenicity. The gallbladder is filled with a moderate amount of bile. No shadowing echogenic stones or masses are seen in the gallbladder. The gallbladder wall is not thickened at 0.9 mm. No pericholecystic fluid is noted. The common bile duct measures 4.0 mm in diameter. The pancreas is not well visualized. Antegrade flow is seen in the portal vein. Right kidney measures 12.8 cm. Right kidney demonstrates a normal echogenicity. No hydronephrosis, masses or stones are noted. IMPRESSION: Diffuse fatty infiltration of an enlarged liver. Pancreas not well visualized. If characterization of this structure is needed repeat exam or CT/MRI is recommended. RPTAT: AA .Antonio Kay MD, MD Date Time Electronically viewed and signed by .Antonio Kay MD, MD on 02/25/2017 20:58 .P/ CC: PATRICIA LEDESMA PA-C PROCEDURES: None. MEDICATIONS GIVEN: IV fluids, Zofran, Pepcid, GI cocktail Patient tolerated medication well with no adverse reactions. Patient reported improvement in pain. MEDICAL DECISION MAKING: This is a 36-year-old male with a history of chronic alcoholism who presents emergency department for concerns of epigastric pain, nausea, vomiting and shaking. Patient reports drinking alcohol last night.. Vital signs were reviewed. Patient is afebrile. CBC showed no evidence of systemic infection or severe anemia. CMP showed sodium of 131, potassium 3.4, AST of 439, ALT of 100. Patient's lipase was noted to be 450. Patient has had lipase is in the 500s in the past. I discussed the patient's elevated lipase with my supervising physician Dr. Montaño who agrees that patient's lipase is not 3 times a normal limit to indicate acute pancreatitis at this time. Gallbladder ultrasound showed Diffuse fatty infiltration of an enlarged liver. Pancreas not well visualized. If characterization of this structure is needed repeat exam or CT/MRI is recommended. Patient did report improvement with IV fluids, Zofran, GI cocktail. At this time, patient's presentation is most consistent with chronic alcoholic gastritis and transaminitis. I have a much lower clinical concern for acute coronary syndrome, AAA, mesenteric ischemia, lower lobe pneumonia, DKA, bowel obstruction, bowel perforation, cholecystitis, choledocholithiasis, ascending cholangitis, hepatic abscess, pancreatitis, UTI, pyelonephritis, nephrolithiasis , appendicitis. Alcohol cessation was advised. Resources were provided. PRESCRIPTIONS: Pepcid, Zofran DISCHARGE: At this time, patient is stable for discharge and outpatient management. I have instructed the patient to follow-up with his/her primary care physician in 1-2 days. I have instructed the patient to promptly return to the ER at any time for any new or worsening symptoms including increased pain, nausea, vomiting, diarrhea, fever, weakness or LOC. The patient and/or family expressed understanding of and agreement with this plan. All questions were answered. Home care instructions were provided. Departure Diagnosis: Primary Impression: Alcoholism /alcohol abuse Additional Impression: Gastritis Gastritis type: alcoholic Chronicity: acute Gastritis bleeding: presence of bleeding unspecified Qualified Code: K29.20 - Acute alcoholic gastritis, presence of bleeding unspecified Condition: Stable Patient Instructions: Gastritis (Adult), Alcohol Abuse Referrals: COMMUNITY CLINICS YOU HAVE RECEIVED A MEDICAL SCREENING EXAM AND THE RESULTS INDICATE THAT YOU DO NOT HAVE A CONDITION THAT REQUIRES URGENT TREATMENT IN THE EMERGENCY DEPARTMENT. FURTHER EVALUATION AND TREATMENT OF YOUR CONDITION CAN WAIT UNTIL YOU ARE SEEN IN YOUR DOCTORS OFFICE WITHIN THE NEXT 1-2 DAYS. IT IS YOUR RESPONSIBILITY TO MAKE AN APPOINTMENT FOR FOLOW-UP CARE. IF YOU HAVE A PRIMARY DOCTOR --you should call your primary doctor and schedule an appointment IF YOU DO NOT HAVE A PRIMARY DOCTOR YOU CAN CALL OUR PHYSICIAN REFERRAL HOTLINE AT IF YOU CAN NOT AFFORD TO SEE A PHYSICIAN YOU CAN CHOSE FROM THE FOLLOWING [facility] [address] [facility] [address] [facility] [address] [facility] [address] [facility] [address] [facility]. [facility] [address] [facility] YOU HAVE RECEIVED A MEDICAL SCREENING EXAM AND THE RESULTS INDICATE THAT YOU DO NOT HAVE A CONDITION THAT REQUIRES URGENT TREATMENT IN THE EMERGENCY DEPARTMENT. FURTHER EVALUATION AND TREATMENT OF YOUR CONDITION CAN WAIT UNTIL YOU ARE SEEN IN YOUR DOCTORS OFFICE WITHIN THE NEXT 1-2 DAYS. IT IS YOUR RESPONSIBILITY TO MAKE AN APPOINTMENT FOR FOLOW-UP CARE. IF YOU HAVE A PRIMARY DOCTOR --you should call your primary doctor and schedule and appointment IF YOU DO NOT HAVE A PRIMARY DOCTOR YOU CAN CALL OUR PHYSICIAN REFERRAL HOTLINE AT . IF YOU CAN NOT AFFORD TO SEE A PHYSICIAN YOU CAN CHOSE FROM THE FOLLOWING [facility]: [facility] [address] [place] [address] [facility] [address] [place] [address] [facility] [address] [place] [address] Additional Instructions: Call your primary care doctor TOMORROW for an appointment during the next 1-2 days.See the doctor sooner or return here if your condition worsens before your appointment time. PATRICIA LEDESMA PA-C Feb 25, 2017 22:07 YOU HAVE RECEIVED A MEDICAL SCREENING EXAM AND THE RESULTS INDICATE THAT YOU DO NOT HAVE A CONDITION THAT REQUIRES URGENT TREATMENT IN THE EMERGENCY DEPARTMENT. FURTHER EVALUATION AND TREATMENT OF YOUR CONDITION CAN WAIT UNTIL YOU ARE SEEN IN YOUR DOCTORS OFFICE WITHIN THE NEXT 1-2 DAYS. IT IS YOUR RESPONSIBILITY TO MAKE AN APPOINTMENT FOR FOLOW-UP CARE. IF YOU HAVE A PRIMARY DOCTOR --you should call your primary doctor and schedule and appointment IF YOU DO NOT HAVE A PRIMARY DOCTOR YOU CAN CALL OUR PHYSICIAN REFERRAL HOTLINE AT . IF YOU CAN NOT AFFORD TO SEE A PHYSICIAN YOU CAN CHOSE FROM THE FOLLOWING [facility] INSTITUTIONS: [facility] [address] [place] [address] [facility] [address] [place] [address] [facility] [address] [place] [address] Additional Instructions: Call your primary care doctor TOMORROW for an appointment during the next 1-2 days.See the doctor sooner or return here if your condition worsens before your appointment time. PATRICIA LEDESMA PA-C Feb 25, 2017 22:07
== END 2017-02-25 22:04 | disposition home or self-care (01) ==
LOC: FTE 17:43
DX: F10.120 Alcohol abuse with intoxication, uncomplicated (principal); K29.20 Alcoholic gastritis without bleeding; R11.2 Nausea with vomiting, unspecified
CPT/HCPCS: 36415; 76705; 80053; 81001; 83690; 85025; 96374; 96375; J2405; J7030; Z7502; Z7610

== ENCOUNTER 2017-02-28 08:07 | Emergency (ER) | payer MEDICAID ==
[~2017-02-28] VITALS: Wt 93.0 kg
[~2017-02-28 08:07] MED LIST changes: +FAMO-96 PO; +ONDA4TAB14 PO
[2017-02-28] MEDS ORDERED: morphine 4 MG/ML VIAL IV STA (08:35)
[2017-02-28] MEDS ORDERED: METOCLOPRAMIDE 10 MG INJ IV STA (08:35)
[2017-02-28] MEDS ORDERED: SOD CHLORIDE 0.9% 1,000 ML IV STA ×2 (08:35→10:00)
[2017-02-28] MEDS ORDERED: FAMOTIDINE 20 MG INJ IV STA (08:35)
--- NOTE | 2017-02-28 09:23 | ERD ---
ER Documentation Chief Complaint Date/Time DATE: 02/28/17 TIME: 09:21 Chief Complaint ABD PAIN, NAUSEA, ONSET 2 DAYS HPI 46-year-old male presents to the emergency department for reevaluation of epigastric abdominal pain and nausea for the past 3 days. Patient drinks 8 beers daily for the past 8 months however he discontinued it 3 days prior to being seen when he was seen at this facility on February 25. He continues to have abdominal pain, rating it 8 out of 10 with nausea. He denies any vomiting , diarrhea, fever. He states that he is unable to eat very well. He states that he has been taking the medication that was prescribed to him which is omeprazole however it does not help him. ROS All systems reviewed and are negative except as per history of present illness. Medications Home Meds Active Scripts Ciprofloxacin Hcl* (Ciprofloxacin Hcl*) 500 Mg Tablet, 500 MG PO BID for 7 Days , TAB Prov:AMARI ARMSTRONG PA-C 02/28/17 Ondansetron (Ondansetron Odt) 4 Mg Tab.rapdis, 4 MG PO Q6H Y for NAUSEA AND/OR VOMITING, #30 TAB Prov:AMARI ARMSTRONG PA-C 02/28/17 Famotidine* (Pepcid*) 20 Mg Tablet, 20 MG PO BID for 30 Days, TAB Prov:PATRICIA LEDESMA PA-C 02/25/17 Ondansetron (Ondansetron Odt) 4 Mg Tab.rapdis, 4 MG PO Q6H Y for NAUSEA AND/OR VOMITING, #10 TAB Prov:PATRICIA LEDESMA PA-C 02/25/17 Diphenhydramine Hcl* (Benadryl*) 25 Mg Cap, 25 MG PO Q6, #15 CAP Prov:KARLA GARCIA MD 02/22/17 Prednisone* (Prednisone*) 20 Mg Tab, 40 MG PO DAILY for 4 Days, TAB Prov:KARLA GARCIA MD 02/22/17 Ondansetron (Ondansetron Odt) 8 Mg Tab.rapdis, 8 MG PO Q6H Y for NAUSEA AND/OR VOMITING, #8 TAB Prov:KARLA GARCIA MD 02/22/17 Allergies Allergies: Coded Allergies: No Known Allergy (Unverified , 02/19/17) PMhx/Soc History of Surgery: No Anesthesia Reaction: No Hx Neurological Disorder: No Hx Respiratory Disorders: No Hx Cardiac Disorders: No Hx Psychiatric Problems: No Hx Miscellaneous Medical Probl: Yes (pancreatitis) Hx Alcohol Use: Yes (daily alcohol use) Hx Substance Use: Yes Hx Tobacco Use: No Physical Exam Vitals Vital Signs Date Time Temp Pulse Resp B/P Pulse Ox O2 Delivery O2 Flow Rate FiO2 02/28/17 08:11 96.7 103 17 118/72 98 Physical Exam GENERAL: well-developed/well-nourished, in no apparent distress, non-toxic appearing HENT: NC/AT, moist mucous membranes EYES: Conjunctiva normal NECK: Supple, no lymphadenopathy PULM: CTA bilaterally, no rales, rhonchi, or wheezing heard CV: Normal S1S2, regular rhythm mild tachy, good capillary refill GI: Soft, non-distended, tender to palpation epigastric region Normal bowel sounds, no masses or organomegaly felt on exam No gross peritonitis, no bruits Negative Rovsing, negative Tuttle, negative McBurney's point, Negative CVAT BACK: No masses EXT: No clubbing, cyanosis, or edema NEURO: Alert and Orientated SKIN: Intact, normal turgor PSYCH: Normal mood and mentation Result Diagram: 02/28/1790402/28/17 09 Results 24 hrs Laboratory Tests Test 02/28/17 09:05 White Blood Count 8.710^3/ul Red Blood Count 4.5810^6/ul Hemoglobin 10.3g/dl Hematocrit 34.0% Mean Corpuscular Volume 74.2fl Mean Corpuscular Hemoglobin 22.5pg Mean Corpuscular Hemoglobin Concent 30.3g/dl Red Cell Distribution Width 20.3% Platelet Count 94102^3/UL Mean Platelet Volume fl Neutrophils % 70.2% Lymphocytes % 19.2% Monocytes % 9.2% Eosinophils % 0.1% Basophils % 0.5% Nucleated Red Blood Cells % 0.0/100WBC Neutrophils # (Manual) 610^3/ul Lymphocytes # 1.710^3/ul Monocytes # 0.810^3/ul Eosinophils # 0.010^3/ul Basophils # 0.010^3/ul Nucleated Red Blood Cells # 0.010^3/ul Urine Color JACQUE Urine Clarity SLIGHTLY CLOUDY Urine pH 6.0 Urine Specific [place] 1.013 Urine Ketones NEGATIVEmg/dL Urine Nitrite NEGATIVEmg/dL Urine Bilirubin 1+mg/dL Urine Urobilinogen 2+mg/dL Urine Leukocyte Esterase 1+Dax/ul Urine Microscopic RBC 1/HPF Urine Microscopic WBC 20/HPF Urine Mucus MODERATE/HPF Urine Hemoglobin NEGATIVEmg/dL Urine Glucose NEGATIVEmg/dL Urine Total Protein 1+mg/dl Sodium Level 134mmol/L Potassium Level 3.3mmol/L Chloride Level 90mmol/L Carbon Dioxide Level 24mmol/L Anion Gap 23 Blood Urea Nitrogen 3mg/dl Creatinine 0.68mg/dl Glucose Level 120mg/dl Calcium Level 9.0mg/dl Total Bilirubin 1.0mg/dl Direct Bilirubin 0.20mg/dl Indirect Bilirubin 0.8mg/dl Aspartate Amino Transf (AST/SGOT) 244IU/L Alanine Aminotransferase (ALT/SGPT) 86IU/L Alkaline Phosphatase 135IU/L Total Protein 9.7g/dl Albumin 4.2g/dl Globulin 5.50g/dl Albumin/Globulin Ratio 0.76 Lipase 642U/L Current Medications Medications (Trade) Dose Ordered Sig/Mirlande Route PRN Reason Start Time Stop Time Status Last Admin Dose Admin Sodium Chloride (NS) 1,000 ml @ 1,000 mls/hr Q1H STAT IV 02/28/17 08:35 02/28/17 09:34 DC 02/28/17 09:00 Metoclopramide HCl (Reglan) 10 mg ONCE STAT IV 02/28/17 08:35 02/28/17 08:38 DC 02/28/17 09:01 Famotidine (Pepcid Iv) 20 mg ONCE STAT IV 02/28/17 08:35 02/28/17 08:38 DC 02/28/17 09:00 Morphine Sulfate 4 mg 4 mg ONCE STAT IV 02/28/17 08:35 02/28/17 08:38 DC 02/28/17 09:01 Sodium Chloride (NS) 1,000 ml @ 1,000 mls/hr Q1H STAT IV 02/28/17 10:00 02/28/17 10:59 DC 02/28/17 10:13 Procedures/MDM 36-year-old male presents to the emergency department with history of chronic alcoholism drinking 8 beers daily for 8 months who discontinued 3 days prior to being seen when he was seen at this facility. Patient complains of epigastric abdominal pain with nausea, likely related to alcohol fatty liver and alcohol abuse. He does not appear to be in DTs. IV access established, patient was given normal saline fluids, morphine, and zofran, patient resting comfortably at bedside and stable. I have reviewed patient's past chart, patient's lipase was ~450, today repeat lipase was ~600. It is not 3x the upper limit for acute pancreatitis therefore patient will be discharged to follow-up with PCP. CBC did not show leukocytosis. Patient had mild hyponatremia and hypokalemia. Patient appears well and stable to be discharged home with precautions to avoid alcohol and to return for any worsening signs and symptoms. He understood and agreed with plan Departure Diagnosis: Primary Impression: Abdominal pain Additional Impressions: Alcoholism /alcohol abuse Alcoholic fatty liver Condition: Stable AMARI ARMSTRONG PA-C Feb 28, 2017 09:23
[2017-02-28 09:28] LABS: ADD UMIC YES; UR ASCORBIC ACID NEGATIVE (NEGATIVE); UR BILIRUBIN (Dip) 1+ mg/dL (NEGATIVE); UR BLOOD (Dip) NEGATIVE (NEGATIVE); UR CLARITY SLIGHTLY CLOUDY (CLEAR); UR COLOR AMBER (YELLOW); UR GLUCOSE (Dip) NEGATIVE (NEGATIVE); UR KETONES (Dip) NEGATIVE (NEGATIVE); UR LEUKOCYTE ESTERASE (Dip) 1+ Leu/ul (NEGATIVE); UR MUCUS MODERATE /HPF (NONE SEEN); UR NITRITE (Dip) NEGATIVE (NEGATIVE); UR RBC 1 /HPF (0-5); UR SPECIFIC GRAVITY (Dip) 1.013 (1.003-1.030); UR TOTAL PROTEIN (Dip) 1+ mg/dl (NEGATIVE); UR UROBILINOGEN (Dip) 2+ mg/dL (NEGATIVE)
[2017-02-28 09:45] LABS: ALBUMIN 4.2 g/dl (3.3-4.9); ALBUMIN/GLOBULIN RATIO 0.76; BILIRUBIN,DIRECT 0.2 mg/dl (0.00-0.20); BILIRUBIN,INDIRECT 0.8 mg/dl (0-1.1); CREATININE 0.68 mg/dl (0.61-1.24); POTASSIUM 3.3 mmol/L (3.5-5.1); TOTAL PROTEIN 9.7 g/dl (6.1-8.1)
[2017-02-28 10:28] LABS: BASOPHILS % 0.5 % (0.0-2.0); EOSINOPHILS % 0.1 % (0.0-7.0); HEMOGLOBIN 10.3 g/dl (14.0-18.0); LYMPHOCYTES # 1.7 10^3/ul (0.8-2.9); LYMPHOCYTES % 19.2 % (15.0-51.0); MEAN CORPUSCULAR HEMOGLOBIN 22.5 pg (29.0-33.0); MEAN CORPUSCULAR HGB CONC 30.3 g/dl (32.0-37.0); MEAN CORPUSCULAR VOLUME 74.2 fl (82.0-101.0); MONOCYTE # 0.8 10^3/ul (0.3-0.9); MONOCYTES % 9.2 % (0.0-11.0); NEUTROPHILS % 70.2 % (39.0-77.0); PLATELET COUNT 155 10^3/UL (140-415); RED BLOOD COUNT 4.58 10^6/ul (4.70-6.10); RED CELL DISTRIBUTION WIDTH 20.3 % (11.5-14.5); WHITE BLOOD COUNT 8.7 10^3/ul (4.8-10.8)
[2017-02-28] MEDS ORDERED: ONDA4TAB14 PO (11:09)
[2017-02-28] MEDS ORDERED: CIPR500T4 PO (11:12)
[2017-02-28 11:39] VITALS: BP 118/85; PULSE 86; RESP 20; TEMP 98.3
== END 2017-02-28 11:40 | disposition home or self-care (01) ==
LOC: FTE 08:07
DX: R10.13 Epigastric pain (principal); F10.10 Alcohol abuse, uncomplicated; K70.0 Alcoholic fatty liver; R11.0 Nausea
CPT/HCPCS: 36415; 80053; 81001; 83690; 85025; 93005; 96374; 96375; J2270; J2765; J7030; Z7502; Z7610

== ENCOUNTER 2017-10-15 14:06 | Emergency (ER) | END 2017-10-15 17:16 | disposition home or self-care (01) ==

== ENCOUNTER 2017-12-10 19:24 | Emergency (ER) | END 2017-12-11 02:20 | disposition home or self-care (01) ==

== ENCOUNTER 2017-12-12 16:49 | Emergency (ER) | END 2017-12-12 21:00 | disposition home or self-care (01) ==

== ENCOUNTER 2017-12-27 02:54 | Emergency (ER) | END 2017-12-27 06:25 | disposition home or self-care (01) ==

== ENCOUNTER 2018-03-11 15:43 | Emergency (ER) | END 2018-03-11 18:50 | disposition home or self-care (01) ==

== ENCOUNTER 2018-04-02 08:33 | Emergency (ER) | END 2018-04-02 10:06 | disposition home or self-care (01) ==

== ENCOUNTER 2018-11-05 08:19 | Emergency (ER) | payer SELFPAY ==
[~2018-11-05] VITALS: Ht 172.7 cm; Wt 107.9 kg
[~2018-11-05 08:19] MED LIST changes: +ACET325T33 PO; +ACET500C5 PO; +AMOX1TAB10 PO; -BEN25 PO; +CIPR500T4 PO; +DIPH1TAB PO; -FAMO-96 PO; +HYDR-4011 PO; +IBUP800T48 PO; +LOPE2CAP PO; +LORA-441 PO; +NAPR-688 PO; +ONDA4TAB11 PO; -ONDA8TAB14 PO; -PRED20TA PO; +RANI150T35 PO
[2018-11-05 08:24] VITALS: Ht 172.7 cm; Wt 107.9 kg
[2018-11-05] MEDS ORDERED: LORAZEPAM 2 MG INJ IV STA (08:39)
[2018-11-05] MEDS ORDERED: MAGNESIUM SULFATE 2 GM, MULTIVITAMINS 10 ML, THIAMINE 100 MG, FOLIC ACID 1 MG in SOD CH... IV STA (08:39)
[2018-11-05] MEDS ORDERED: ONDANSETRON 4 MG INJ IV STA (08:49)
[2018-11-05 11:54] VITALS: BP 114/81; PULSE 75; RESP 18
--- NOTE | 2018-11-16 06:07 | ERD ---
ER Documentation Chief Complaint Chief Complaint abdominal pain, headache, nausea and numbness to face, arms and feet HPI This is a 38-year-old male with a known history of alcohol abuse. The patient indicates his last consumption of alcohol was roughly 2 hours prior to arrival. The patient complains of a bandlike headache. He states there is been no recent remote blunt penetrating head chest or abdominal trauma. He also complains of abdominal cramping and nausea but denies any hemoptysis hematemesis or melanotic stools. He states he is feeling intermittent numbness to his face arms hands and feet. He is feeling very shaky. He has a history of alcohol withdrawal seizures. He had no fevers no shaking no chills. He denies any illicit drug use. He states that the abdominal cramping is intermittent and he denies any stabbing or dull ache to the abdomen. ROS All systems reviewed and are negative except as per history of present illness. Medications Home Meds Active Scripts Acetaminophen* (Tylophen*) 500 Mg Capsule, 2 CAP PO Q8H PRN for PAIN AND OR ELEVATED TEMP, #20 CAP Prov:MANNY NEGRETE PA-C 04/02/18 Ibuprofen* (Motrin*) 800 Mg Tab, 800 MG PO Q6, #30 TAB Prov:MANNY NEGRETE PA-C 04/02/18 Amoxicillin/Potassium Clav (Amox-Clav 875-125 mg Tablet) 875-125 mg Tab, 1 TAB PO BID for 7 Days, #14 TAB Prov:MANNY NEGRETE PA-C 04/02/18 Ondansetron (Ondansetron Odt) 4 Mg Tab.rapdis, 4 MG PO Q6H PRN for NAUSEA AND/OR VOMITING, #10 TAB Prov:YIFAN COX MD 03/11/18 Acetaminophen* (Tylenol*) 325 Mg Tablet, 2 TAB PO Q8 PRN for PAIN AND OR ELEVAT ED TEMP, #20 TAB Prov:YIFAN COX MD 03/11/18 Loperamide Hcl* (Imodium*) 2 Mg Capsule, 2 MG PO .WITH EACH DIARRHEA PRN for DIARRHEA, #20 CAP MAX 16 mg/day Prov:LORRIE QIU MD 12/27/17 Ondansetron (Ondansetron Odt) 4 Mg Tab.rapdis, 4 MG PO Q6H PRN for NAUSEA AND/OR VOMITING, #10 TAB Prov:LORRIE QIU MD 12/27/17 Ciprofloxacin Hcl* (Ciprofloxacin Hcl*) 500 Mg Tablet, 500 MG PO BID for 7 Days, TAB Prov:LORRIE QIU MD 12/27/17 Lorazepam* (Ativan*) 0.5 Mg Tablet, 0.5 MG PO Q8H PRN for ANXIETY, #10 TAB Prov:SOURAV AVENDANO MD 12/12/17 Ranitidine Hcl* (Zantac*) 150 Mg Tablet, 150 MG PO BID PRN for EPIGASTRIC PAIN, #30 TAB Prov:SOURAV AVENDANO MD 12/12/17 Ciprofloxacin Hcl* (Ciprofloxacin Hcl*) 500 Mg Tablet, 500 MG PO BID for 10 Days , TAB Prov:SOURAV AVENDANO MD 12/12/17 Hydrocodone/Acetaminophen ([place] 5-325 Tablet) 1 Each Tablet, 1 EACH PO Q6 for byrd, #5 TAB Prov:BECCA MUELLER DO 12/11/17 Naproxen* (Naproxen*) 500 Mg Tablet, 500 MG PO BID PRN for PAIN, #6 TAB Prov:BECCA MUELLER DO 12/11/17 Ondansetron (Zofran Odt) 4 Mg Tab.rapdis, 4 MG PO Q6 for NAUSEA AND/OR VOMITING, #10 Prov:BECCA MUELLER DO 12/11/17 Diphenoxylate HCl/Atropine (Lomotil 2.5-0.025 mg Tablet) 1 Each Tablet, 1 TAB PO Q6H PRN for DIARRHEA, #10 TAB Prov:BECCA MUELLER DO 12/11/17 Allergies Allergies: Coded Allergies: No Known Allergy (Unverified , 11/05/18) PMhx/Soc History of Surgery: No Anesthesia Reaction: No Hx Neurological Disorder: No Hx Respiratory Disorders: No Hx Cardiac Disorders: No Hx Psychiatric Problems: No Hx Miscellaneous Medical Probl: Yes (ETOH) Hx Alcohol Use: Yes (every weekend) Hx Substance Use: No Hx Tobacco Use: No Smoking Status: Never smoker Physical Exam Physical Exam Constitutional:Well-developed. Well-nourished. HEENT:Normocephalic. Atraumatic with no nasal septal hematoma. No hemotympanum..Pupils were equal round reactive to light. Moist mucous membranes.No tonsillar exudates. Neck: No nuchal rigidity. No lymphadenopathy. No posterior cervical spine tende rness or step-offs. Respiratory: Not using accessory muscles of respiration.Lungs were clear to auscultation bilaterally. No rhonchi. No rales. No wheezing. Cardiovascular: Regular rate regular rhythm.No murmurs. No rubs were appreciated.S1, S2 normal. Distal pulses are palpable 2+ bilaterally. GI: Abdomen was soft. Nontender. Non Distended. No pulsatile abdominal masses or bruits. No rebound. No guarding. Bowel sounds were present and normal. Muscle skeletal: Full range of motion of both the upper and lower extremities bilaterally.Normal muscle tone.No assymetrical calf tenderness or swelling. Skin: No petechia, no purpura. No lesions on the palms or the soles of the feet. No maculopapular rash. NEURO: Patient was alert, awake, orientated x3.No facial droop. Gait observed and normal with no ataxia.Speech had regular rate and rhythm. No focal neurological deficits. Mild asterixis. Results 24 hrs Laboratory Tests Test 11/05/18 09:00 11/05/18 10:45 White Blood Count 6.6 10^3/ul Red Blood Count 5.01 10^6/ul Hemoglobin 12.5 g/dl Hematocrit 39.7 % Mean Corpuscular Volume 79.2 fl Mean Corpuscular Hemoglobin 25.0 pg Mean Corpuscular Hemoglobin Concent 31.5 g/dl Red Cell Distribution Width 19.0 % Platelet Count 103 10^3/UL Mean Platelet Volume 12.2 fl Immature Granulocytes % 0.200 % Neutrophils % 58.7 % Lymphocytes % 30.3 % Monocytes % 9.1 % Eosinophils % 0.8 % Basophils % 0.9 % Nucleated Red Blood Cells % 0.0 /100WBC Immature Granulocytes # 0.010 10^3/ul Neutrophils # 3.9 10^3/ul Lymphocytes # 2.0 10^3/ul Monocytes # 0.6 10^3/ul Eosinophils # 0.1 10^3/ul Basophils # 0.1 10^3/ul Nucleated Red Blood Cells # 0.0 10^3/ul Prothrombin Time 15.4 Sec Prothrombin Time Ratio 1.2 INR International Normalized Ratio 1.21 Activated Partial Thromboplast Time 33.1 Sec Sodium Level 144 mmol/L Potassium Level 4.2 mmol/L Chloride Level 103 mmol/L Carbon Dioxide Level 26 mmol/L Anion Gap 15 Blood Urea Nitrogen 4 mg/dl Creatinine 0.44 mg/dl Est Glomerular Filtrat Rate mL/min > 60 mL/min Glucose Level 127 mg/dl Calcium Level 9.7 mg/dl Total Bilirubin 0.4 mg/dl Direct Bilirubin 0.00 mg/dl Indirect Bilirubin 0.4 mg/dl Aspartate Amino Transf (AST/SGOT) 140 IU/L Alanine Aminotransferase (ALT/SGPT) 44 IU/L Alkaline Phosphatase 115 IU/L Total Protein 10.2 g/dl Albumin 4.5 g/dl Globulin 5.70 g/dl Albumin/Globulin Ratio 0.78 Ethyl Alcohol Level 137.0 mg/dl Urine Color STRAW Urine Clarity CLEAR Urine pH 8.0 Urine Specific [place] 1.002 Urine Ketones NEGATIVE mg/dL Urine Nitrite NEGATIVE mg/dL Urine Bilirubin NEGATIVE mg/dL Urine Urobilinogen NEGATIVE mg/dL Urine Leukocyte Esterase 1+ Dax/ul Urine Microscopic RBC 0 /HPF Urine Microscopic WBC 1 /HPF Urine Bacteria FEW /HPF Urine Hemoglobin NEGATIVE mg/dL Urine Glucose NEGATIVE mg/dL Urine Total Protein NEGATIVE mg/dl Current Medications Medications Dose Sig/[place] Start Time Status Last (Trade) Ordered Route PRN Stop Time Admin Dose Reason Admin Magnesium 1,015.2 ml Q2H2M STAT 11/05/18 DC 11/05/18 Sulfate 2 @ 500 mls/ IV 08:39 09:19 gm/ hr 11/05/18 10:40 Multivitamins 10 ml/Thiamine HCl 100 mg/Folic Acid 1 mg/Sodium Chloride Lorazepam 1 mg ONCE STAT 11/05/18 DC 11/05/18 (Ativan) IV 08:39 09:20 11/05/18 08:46 Ondansetron 4 mg ONCE STAT 11/05/18 DC 11/05/18 HCl (Zofran IV 08:49 09:19 Inj) 11/05/18 08:50 Procedures/MDM This is a 38-year-old male that presented to the emergency department with multiple complaints. The patient initially complained of abdominal cramping. His abdomen was benign with no peritoneal signs. The patient serum ethanol was elevated at 137. The patient does have a history of alcohol abuse. He also complained of a headache. Given that he has a history of alcoholism he states he could not specifically remember any head trauma. Physical exam was atraumatic but I did feel is necessary to obtain a CT scan the patient's head which was reviewed by myself the radiologist and there is no subdural hematoma. The patient had no leukocytosis. No severe left leg abnormalities. Mild transaminitis. The patient was treated for alcohol withdrawal. I felt the numbness and tingling was more likely result of paresthesias as there is no focal neurological deficits to suggest a cerebrovascular accident. The patient received a banana bag and Ativan. He was given outpatient resources for detox centers. The patient was discharged home in fair condition. They were instructed to return to the emergency department at any time if there was any worsening of their condition. The patient stated they would follow up with their PCP in the next 24-48 hours to initiate a suitable medication regimen under the care of their PCP as well as to allow their PCP to monitor any drug reactions. The patient was discharged home with prescriptions after they gave informed consent to the new medication. They were also fully informed by myself on the a dverse effects and adverse drug interactions in order to provide adequate safeguards to prevent possible adverse reactions to medications. Departure Diagnosis: Primary Impression: Alcohol withdrawal syndrome Complication of substance-induced condition: uncomplicated Qualified Codes: F10.230 - Alcohol dependence with withdrawal, uncomplicated Additional Impression: Paresthesias Condition: Fair Patient Instructions: Alcohol Withdrawal, Paraesthesias JUAN CARLOS DELGADO MD November 16, 2018 06:07
== END 2018-11-05 12:35 | disposition home or self-care (01) ==
LOC: E/R 08:19
DX: F10.230 Alcohol dependence with withdrawal, uncomplicated (principal); R20.2 Paresthesia of skin; R40.2142 Coma scale, eyes open, spontaneous, at arrival to emergency department; R40.2252 Coma scale, best verbal response, oriented, at arrival to emergency department; R40.2362 Coma scale, best motor response, obeys commands, at arrival to emergency department
CPT/HCPCS: 70450; 71045; 80053; 80307; 81001; 85025; 85610; 85730; J2060; J2405; J3411; J3475; J7030; 96374; 96375

== ENCOUNTER 2019-03-31 04:56 | Emergency (ER) | payer SELFPAY ==
[~2019-03-31] VITALS: Ht 182.9 cm; Wt 107.1 kg
[~2019-03-31 04:56] MED LIST changes: +FAMO-96 PO; +ONDA4TAB13 PO; +RANI-535 PO; -RANI150T35 PO
[2019-03-31 05:00] VITALS: Ht 182.9 cm; Wt 107.1 kg
[2019-03-31 05:50] VITALS: BP 147/93; PULSE 112; RESP 27
== END 2019-03-31 06:00 | disposition left against medical advice (07) ==
LOC: E/R 04:56
DX: F41.9 Anxiety disorder, unspecified (principal); F10.239 Alcohol dependence with withdrawal, unspecified; R42 Dizziness and giddiness; M54.2 Cervicalgia; R10.9 Unspecified abdominal pain
CPT/HCPCS: 71045

== ENCOUNTER 2019-03-31 06:59 | Emergency (ER) | payer SELFPAY ==
[~2019-03-31] VITALS: Wt 90.0 kg
[2019-03-31 07:06] VITALS: BP 140/77; PULSE 77; RESP 18
[2019-03-31] MEDS ORDERED: ONDANSETRON 4 MG INJ IV STA (07:42)
[2019-03-31] MEDS ORDERED: KETOROLAC 15 MG INJ IM STA (07:42)
[2019-03-31] MEDS ORDERED: FAMOTIDINE 20 MG TAB PO ONE (08:00)
[2019-03-31] MEDS ORDERED: ACETAMINOPHEN 325 MG TAB PO ONE (08:00)
[2019-03-31] MEDS ORDERED: ONDANSETRON 4 MG TAB PO ONE (09:00)
== END 2019-03-31 09:00 | disposition home or self-care (01) ==
LOC: E/R 06:59
DX: F10.10 Alcohol abuse, uncomplicated (principal); R10.9 Unspecified abdominal pain; R51 Headache
CPT/HCPCS: 93005; 96372; 99284; J1885